=== PATIENT | male | born 1990 | race Caucasian/White ===

== ENCOUNTER 2021-01-19 08:24 | Outpatient (REF) | payer OTHER, SELFPAY ==
[2021-01-19 09:01] LABS: COVID-19 Test Negative (Negative)
== END 2021-01-19 08:25 | disposition home or self-care (01) ==
LOC: HO.LAB 08:24
PROVIDERS: Visit Provider Internal Medicine
DX: Z20.822 Contact with and (suspected) exposure to COVID-19 (principal)
CPT/HCPCS: 36415; 87635; C9803

== ENCOUNTER 2023-04-07 10:15 | Outpatient (AMB) | payer OTHER, SELFPAY ==
--- NOTE | 2023-04-07 10:19 | A.OFFPC_ITS ---
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 Accompanied by: Self / Same As Patient Allergies No Known Allergies Allergy (Verified 04/07/23 10:50) Medication List - Last Reconciled 04/07/23 by Juan Mc PA-C blood pressure monitor (Blood Pressure Kit) As directed dextroamphetamine-amphetamine 30 mg ER (Adderall XR) 30 mg PO DAILY 30 days lisinopril 10 mg PO DAILY omeprazole 40 mg PO QAM Tobacco use date assessed: 04/07/23 Dental Screening Dental Screen Date: 04/07/23 Did you have a dental visit in the last 12 months?: Yes Did you have a dental problem in the last 6 months where you did not have access to dental care?: No Was dental information given to patient?: Patient has dentist HPI PE HPI Details Patient is a 32-year-old male here today for annual physical? Patient has a past medical history significant for ADHD, HTN and obesity. Concern--> reports having a several month history of intermittent left wrist pain. Has gotten x-ray without any acute evidence of fracture dislocations. 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 ADHD:? Has been doing well on current dose of Adderall.? Able to stay focused and on task while at work. 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 .. Hypertension:? Patient's blood pressure acceptable today in office.? He continues on lisinopril 10 mg with good effect.? Has follow-up with nurse navigator and has had blood pressure checks with decent readings. Vaccines: Up-to-date with COVID vaccine, tetanus vaccine [facility] Medical History (Updated 04/07/23 @ 11:07 by Juan Mc PA-C) Elevated blood pressure reading Right wrist tendinitis Surgical History History of eye surgery History of foot surgery History of hand surgery History of removal of cyst History of wisdom tooth extraction Family History Father No problems noted. Mother No problems noted. 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 Roc Garcia, Tracey Mcintosh, Arturo Reyes and colleagues, with an educational eros from [employer]. Review of Systems Const Denies body aches, Denies chills, Denies excessive sweating, Denies fatigue, Denies fever(s) and Denies headache(s) Eyes Denies blurry vision ENT Denies dysphagia, Denies vertigo, Denies dizziness, Denies headache(s), Denies hearing loss and Denies tinnitus Card Denies chest pain, Denies chest pain with activity, Denies syncope, Denies irregular heart rhythm and Denies dyspnea Resp Denies chest congestion, Denies cough, Denies hemoptysis, Denies dyspnea and Denies wheezing GI Denies abdominal pain, Denies melena, Denies hematochezia, Denies coffee ground emesis, Denies dysphagia, Denies diarrhea, Denies nausea and Denies vomiting Denies difficulty urinating, Denies dysuria, Denies urinary frequency, Denies urinary hesitancy and Denies urinary urgency Musc Denies arthralgias, Denies limited range of motion, Denies muscle cramps and Denies muscle weakness Skin/Breast Denies rash and Denies skin ulcer Neuro Denies Abnormal speech present, Denies confusion, Denies vertigo, Denies dizziness, Denies syncope, Denies headache(s), Denies memory loss and Denies seizure-like activity Psych Denies anxiety, Denies confusion, Denies depression, Denies memory loss, Denies panic attacks and Denies paranoia Endo Denies excessive sweating, Denies fatigue, Denies flushing, Denies polydipsia and Denies polyuria Aller/Immun Denies wheezing Physical exam (Primary Care) Vital Signs: Last Vital Signs Pulse 73 04/07/23 10:20 BP 122/78 04/07/23 10:20 Pulse Ox 97 04/07/23 10:20 BMI result Body Mass Index 31.8 BMI Assessment/Plan discussion: High Tobacco/Smoking Status: Tobacco use Status Tobacco use date assessed 04/07/23 04/07/23 10:20 Patient Tobacco Use Status Never used Tobacco 04/07/23 10:20 e-Cigarette/Vaping Use Never Used 04/07/23 10:20 Thrive Assessment: Date of Thrive Assessment Date Thrive assessed 10/11/22 04/07/23 10:20 Const General: cooperative, comfortable, no acute distress, alert and awake; No confusion Orientation/consciousness: oriented to person, oriented to place, patient oriented x3 and No confusion HENMT Other: RIGHT EAR: TYMPANIC MEMBRANE WITHOUT ERYTHEMA THOUGH DOES HAVE AIR-FLUID LEVELS. Head: Yes normocephalic Ears: external ears normal Face and sinus: No sinus tenderness Mouth: Normal oral and palatal mucosa present and tongue normal Teeth and gingiva: dentition normal and gingiva normal Throat: Yes posterior oropharynx normal, Yes tonsils normal and Yes uvula midline Eyes Conjunctivae: conjunctivae normal Sclerae: sclerae normal Pupils: Equal, round and reactive pupils present EOM: EOMs intact bilaterally Direct Ophthalmoscopy: No no photophobia Neck Neck: Yes no lymphadenopathy, No tender and Yes no JVD Thyroid: Thyroid normal Carotids: no bruits Chest Chest palpation & inspection: no tenderness Resp Effort & Inspection: normal respiratory effort, no audible wheezes, not labored and no stridor Auscultation: no crackles, no rales, no rhonchi and no wheezes Cardio Jugular venous distension: no JVD Rate: regular rate, not bradycardic and not tachycardic Rhythm: regular rhythm Bruits: no carotid bruits Peripheral pulses: Peripheral pulses 2+ throughout GI Inspection: Yes normal to inspection, No abdominal wall ecchymosis and No visible herniation Palpation (GI): Soft to palpation, nontender, no guarding, not rigid and No hepatosplenomegaly present Auscultation: normoactive bowel sounds General: Yes no CVA tenderness Back/Spine/Pelvis Back: no CVA tenderness and No back tenderness Cervical Spine: cervical ROM normal Thoracic/Lumbar Spine: thoracic and lumbar spine normal to inspection, straight leg raise negative bilaterally, No thoraco-lumbar ROM limited and No lumbar spinal tenderness Skin Lesions: no lesions Rashes: no rashes Wounds: no wounds Neuro General: oriented to person, oriented to place, patient oriented x3, CN's II-XI intact bilaterally and No confusion Cranial nerves: Yes Equal, round and reactive pupils present and Yes Normal accommodation reflex present Cognition (Neuro): normal cognition Speech: No Abnormal speech present Gait exam (Neuro): Normal gait present Motor exam (neuro): 5/5 motor strength present throughout Extrem Right upper extremity: full ROM; no cyanosis Left upper extremity: full ROM; no cyanosis Right lower extremity: no edema Left lower extremity: no edema Psych Appearance: grossly normal Mental Status: mental status grossly normal Affect: normal affect Attitude: cooperative Thought process: Normal thought process present Assessment and Plan Assessment & Plan (1) Physical exam: Comment: UTD eye exam Due for dental Due for labs ordered by previous PCP Code(s): Z00.00 - Encounter for general adult medical examination without abnormal findings (2) HTN (hypertension): Code(s): I10 - Essential (primary) hypertension Qualifiers: Hypertension type: primary hypertension Qualified Code(s): I10 - Essential (primary) hypertension Plan: Patient's blood pressure acceptable today in office. Will continue his current dose of lisinopril 10 mg with goal blood pressure to be below 140/90 (3) Obese: Code(s): E66.9 - Obesity, unspecified Qualifiers: Body mass index: BMI 34.0-34.9 Obesity classification: adult class 1 (BMI 30 - 34.9) Obesity type: due to excess calories Serious obesity comorbidity presence: without serious comorbidity Qualified Code(s): E66.09 - Other obesity due to excess calories; Z68.34 - Body mass index [BMI] 34.0-34.9, adult Plan: Patient does understand his BMI still remains above 30 will continue working on being more physically active and adapting to better eating habits to reduce his weight (4) ADHD (attention deficit hyperactivity disorder): Code(s): F90.9 - Attention-deficit hyperactivity disorder, unspecified type Qualifiers: Attention deficit-hyperactivity disorder type: combined inattentive- hyperactive Qualified Code(s): F90.2 - Attention-deficit hyperactivity disorder, combined type Plan: Patient continues on Adderall 30 mg daily with good effect on his attention focus on his job tasks. He denies any side effects of decreased appetite or sleep disturbance. (5) Chronic eustachian salpingitis, right ear: Code(s): H68.021 - Chronic Eustachian salpingitis, right ear Plan: Reports he continues to have right ear crackling sound. Has tried to clean his ear though has not been effective. He reports this sensation in his ear has been evident over many years. On physical exam does have air-fluid levels noted on his tympanic membrane. Likely has eustachian tube dysfunction advised on antihistamine therapy and Flonase nasal spray as conservative therapy. Will refer to ENT for evaluation and treatment. Orders: Orders Comprehensive [place]. Panel Fast Today I10 - Essential (primary) hypertension Microalbumin, Random (w Creat) Today I10 - Essential (primary) hypertension Complete Blood Count no Diff Today I10 - Essential (primary) hypertension Referrals Ear/Nose/Throat Referral H68.021 - Chronic Eustachian salpingitis, right ear Coding Level of Care Code Est Pt Prev Care 18-39y([id number]) Diagnoses Physical exam Z00.00 HTN (hypertension) I10 Hypertension type: primary hypertension Obese E66.09; Z68.34 Body mass index: BMI 34.0-34.9 Obesity classification: adult class 1 (BMI 30 - 34.9) Obesity type: due to excess calories Serious obesity comorbidity presence: without serious comorbidity ADHD (attention deficit hyperactivity disorder) F90.2 Attention deficit-hyperactivity disorder type: combined inattentive- hyperactive Chronic eustachian salpingitis, right ear H68.021
[2023-04-07 10:20] VITALS: BP 122/78; PULSE 73; O2SAT 97; BMI 31.8
== END 2023-04-07 11:11 | disposition home or self-care (01) ==
PROVIDERS: PCP Physician Assistant; Visit Provider Physician Assistant
DX: Z00.00 Encounter for general adult medical examination without abnormal findings (principal); I10 Essential (primary) hypertension; Z68.34 Body mass index [BMI] 34.0-34.9, adult; F90.2 Attention-deficit hyperactivity disorder, combined type; E66.09 Other obesity due to excess calories; H68.021 Chronic Eustachian salpingitis, right ear
CPT/HCPCS: 99395

== ENCOUNTER 2023-08-31 09:12 | Outpatient (AMB) | payer OTHER, SELFPAY ==
[2023-08-31 09:18] VITALS: BP 132/96; PULSE 88; O2SAT 98; BMI 32.0
--- NOTE | 2023-08-31 09:18 | MHC.PC.OV ---
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 by: Self / Same As Patient Allergies No Known Allergies Allergy (Verified 08/31/23 09:49) Medication List - Last Reconciled 08/31/23 by Juan Mc PA-C blood pressure monitor (Blood Pressure Kit) As directed dextroamphetamine-amphetamine 30 mg ER (Adderall XR) 30 mg PO DAILY 28 days lisinopril 10 mg PO DAILY omeprazole 40 mg PO QAM Tobacco use date assessed: 04/07/23 Dental Screening Dental Screen Date: 08/31/23 Did you have a dental visit in the last 12 months?: Yes Did you have a dental problem in the last 6 months where you did not have access to dental care?: No Was dental information given to patient?: Patient has dentist HPI ADHD f/u HPI Details Patient is a 32-year-old male here today for follow-up visit. Patient has a past medical history significant for ADHD, HTN and obesity. ADHD:? Has been doing well on current dose of Adderall.? Able to stay focused and on task while at work. 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 .. Hypertension:? Patient's blood pressure slightly elevated today in office, he reports having coffee this morning..? He continues on lisinopril 10 mg with good effect.? Has follow-up with nurse navigator and has had blood pressure checks with decent readings. He has yet to get labs done advised to do so [facility] Medical History Right wrist tendinitis Elevated blood pressure reading Surgical History History of hand surgery History of wisdom tooth extraction History of removal of cyst History of foot surgery History of eye surgery Family History Father No problems noted. Mother No problems noted. 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 Roc Garcia, Tracey Mcintosh, Arturo Reyes and colleagues, with an educational eros from [employer]. Review of Systems Const Denies headache(s) Eyes Denies loss of vision ENT Denies vertigo, Denies dizziness, Denies headache(s) and Denies sore throat Card Denies chest pain, Denies leg edema and Denies lightheadedness Resp Denies cough, Denies hemoptysis and Denies wheezing GI Denies abdominal pain, Denies melena, Denies constipation, Denies diarrhea and Denies vomiting Denies dysuria, Denies urinary frequency and Denies urinary urgency Musc Denies arthralgias, Denies joint swelling, Denies numbness and Denies tingling Neuro Denies Abnormal speech present, Denies behavioral changes, Denies vertigo, Denies dizziness, Denies headache(s), Denies loss of vision, Denies memory loss, Denies numbness and Denies tingling Psych Denies anxiety, Denies behavioral changes, Denies depression, Denies memory loss and Denies panic attacks Rafy/Lymph Denies easy bleeding and Denies easy bruising Aller/Immun Denies wheezing Physical exam (Primary Care) Vital Signs: Last Vital Signs Pulse 88 08/31/23 09:18 BP 132/96 H 08/31/23 09:18 Pulse Ox 98 08/31/23 09:18 Oxygen Delivery Method Room Air 08/31/23 09:18 BMI result Body Mass Index 32.0 Tobacco/Smoking Status: Tobacco use Status Tobacco use date assessed 04/07/23 08/31/23 09:24 Patient Tobacco Use Status Never used Tobacco 08/31/23 09:24 e-Cigarette/Vaping Use Never Used 08/31/23 09:24 Thrive Assessment: Date of Thrive Assessment Date Thrive assessed 10/11/22 08/31/23 09:24 Const General: healthy appearing, no acute distress, alert and awake Nutritional Appearance: well nourished Orientation/consciousness: oriented to person, oriented to place and oriented to time HENMT Ears: TM's normal bilaterally General nose exam: Normal nasal mucous membranes and turbinates present Eyes Conjunctivae: conjunctivae normal Sclerae: sclerae normal Pupils: Equal, round and reactive pupils present Neck Neck: Yes no lymphadenopathy and Yes no JVD Thyroid: Thyroid normal Carotids: no bruits Resp Effort & Inspection: normal respiratory effort and not tachypneic Auscultation: no crackles, no rales, no rhonchi and no wheezes Cardio Rate: regular rate Rhythm: regular rhythm Heart sounds: no murmurs and normal S1 and S2 GI Palpation (GI): Soft to palpation, nontender, no hepatomegaly and no splenomegaly Auscultation: normal bowel sounds Skin General skin exam: no rashes or lesions noted and dry skin Neuro General: oriented to person, oriented to place and oriented to time Cranial nerves: Yes Equal, round and reactive pupils present Speech: No Abnormal speech present Gait exam (Neuro): Normal gait present Motor exam (neuro): no tremor noted Extrem Right upper extremity: full ROM Left upper extremity: full ROM Right lower extremity: full ROM; no edema Left lower extremity: full ROM; no edema Psych Mental Status: mental status grossly normal Speech and movement: Normal speech and movement present Affect: normal affect Attitude: cooperative Thought process: Normal thought process present Assessment and Plan Assessment & Plan (1) HTN (hypertension): Code(s): I10 - Essential (primary) hypertension Plan: Patient's blood pressure slightly elevated today in office. He does not monitor his blood pressure at home as he reports his cuff is inaccurate.. Advised him to purchase a new cough and do home blood pressure monitoring. Will continue his current dose of lisinopril 10 mg with goal blood pressure to be below 140/90 (2) Obese: Code(s): E66.9 - Obesity, unspecified Plan: Patient does understand his BMI still remains above 30 will continue working on being more physically active and adapting to better eating habits to reduce his weight (3) ADHD (attention deficit hyperactivity disorder): Code(s): F90.9 - Attention-deficit hyperactivity disorder, unspecified type Qualifiers: Attention deficit-hyperactivity disorder type: combined inattentive-hyperactive Qualified Code(s): F90.2 - Attention-deficit hyperactivity disorder, combined type Plan: Patient continues on Adderall 30 mg daily with good effect on his attention focus on his job tasks. He denies any side effects of decreased appetite or sleep disturbance. Coding Level of Care Code Est Pt Level 3 (76248) Diagnoses HTN (hypertension) I10 Obese E66.9 Attention deficit hyperactivity disorder (ADHD), combined type F90.2 Attention deficit-hyperactivity disorder type: combined inattentive-hyperactive
== END 2023-08-31 10:00 | disposition home or self-care (01) ==
PROVIDERS: PCP Physician Assistant; Visit Provider Physician Assistant
DX: I10 Essential (primary) hypertension (principal); E66.9 Obesity, unspecified; F90.2 Attention-deficit hyperactivity disorder, combined type; Z68.32 Body mass index [BMI] 32.0-32.9, adult
CPT/HCPCS: 99213

== ENCOUNTER 2023-12-13 08:49 | Outpatient (AMB) | payer OTHER, SELFPAY ==
--- NOTE | 2023-12-13 08:49 | MHC.PC.OV ---
Intake Visit Reasons: 3 month f/u Intake Note: Patient is here to follow up on medication review. 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 Accompanied by: Self / Same As Patient Allergies No Known Allergies Allergy (Verified 12/13/23 09:17) Medication List - Last Reconciled 12/13/23 by Juan Mc PA-C blood pressure monitor (Blood Pressure Kit) As directed dextroamphetamine-amphetamine 30 mg ER (Adderall XR) 30 mg PO DAILY 28 days fluticasone propionate 50 mcg/actuation 2 sprays intranasal DAILY lisinopril 10 mg PO DAILY omeprazole 40 mg PO QAM Tobacco use date assessed: 04/07/23 Dental Screening Dental Screen Date: 12/13/23 Did you have a dental visit in the last 12 months?: No Did you have a dental problem in the last 6 months where you did not have access to dental care?: No Was dental information given to patient?: No HPI 3 month f/u HPI Details Patient is a 33-year-old male being evaluated today via telephone. Recently tested positive COVID. Patient has a past medical history significant for ADHD, HTN and obesity. ADHD:? Has been doing well on current dose of Adderall.? Able to stay focused and on task while at work. 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 .. Hypertension:? ? He continues on lisinopril 10 mg with good effect.? Has follow-up with nurse navigator and has had blood pressure checks with decent readings. He has yet to get labs done advised to do so [facility] Medical History Right wrist tendinitis Elevated blood pressure reading Surgical History History of hand surgery History of wisdom tooth extraction History of removal of cyst History of foot surgery History of eye surgery Family History Father No problems noted. Mother No problems noted. 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 1. Little interest or pleasure in doing things: not at all 2. Feeling down, depressed, or hopeless: not at all 3. Trouble falling or staying asleep, or sleeping too much: not at all 4. Feeling tired or having little energy: not at all 5. Poor appetite or overeating: not at all 6. Feeling bad about yourself - or that you are a failure or have let yourself or your family down: not at all 7. Trouble concentrating on things, such as reading the newspaper or watching television: not at all 8. Moving or speaking so slowly that other people could have noticed. Or the opposite - being so fidgety or restless that you have been moving around a lot more than usual: not at all 9. Thoughts that you would be better off or of hurting yourself in some way: not at all Total score: 0 Depression Screening Interpretation: Negative Depression Screening Done: Yes Source: Developed by Drs. Roc Garcia, Tracey Mcintosh, Arturo Reyes and colleagues, with an educational eros from [employer]. Thrive Questionnaire Date Thrive assessed: 12/13/23 I am a: Patient What is your living situation today?: I have a steady place to live Within the past 12 months, did the food you bought not last and you didn't have the money to get more?: Never true Within the past 12 months, did you worry whether your food would run out before you got money to buy more?: Never true Do you have trouble paying for medicines?: No Do you have trouble getting transportation to medical appointments?: No Do you have trouble paying your heating and electricity bill?: No Do you have trouble taking care of your child, family member or friend?: No Do you have trouble with day-to-day activities such as bathing, preparing meals, shopping, managing finances, etc.?: No Are you currently unemployed and looking for a job?: No Are you interested in more education?: No Currently or been in a relationship where the following occur: no concerns reported THRIVE Score: 0 AUDIT C Alcohol Use Questionnaire (AUDIT-C) 1. How often do you have a drink containing alcohol?: Never Total Score: 0 APRYL-7 AMB Questionnaire APRYL-7 Date APRYL - 7 assessed: 12/13/23 Feeling nervous, anxious, or on edge: 0 = Not at all Not being able to stop or control worryin = Not at all Worrying too much about different things: 0 = Not at all Trouble relaxin = Not at all Being so restless that it is hard to sit still: 0 = Not at all Becoming easily annoyed or irritable: 0 = Not at all Feeling afraid as if something awful might happen: 0 = Not at all Total APRYL-7 score (0-4 normal; 5-9 mild; 10-14 moderate; 15-21 severe): 0 Source: Developed by Drs. Roc Garcia, Tracey Mcintosh, Arturo Reyes and colleagues, with an educational eros from [employer]. APRYL-7 Assessment Billing APRYL-7 Assessment Tool: APRYL-7 Assessment 21803 Review of Systems Const Denies headache(s) Eyes Denies loss of vision ENT Denies vertigo, Denies dizziness, Denies headache(s) and Denies sore throat Card Denies chest pain, Denies leg edema and Denies lightheadedness Resp Denies cough, Denies hemoptysis and Denies wheezing GI Denies abdominal pain, Denies melena, Denies constipation, Denies diarrhea and Denies vomiting Denies dysuria, Denies urinary frequency and Denies urinary urgency Musc Denies arthralgias, Denies joint swelling, Denies numbness and Denies tingling Neuro Denies behavioral changes, Denies vertigo, Denies dizziness, Denies headache(s), Denies loss of vision, Denies memory loss, Denies numbness and Denies tingling Psych Denies anxiety, Denies behavioral changes, Denies depression, Denies memory loss and Denies panic attacks Rafy/Lymph Denies easy bleeding and Denies easy bruising Aller/Immun Denies wheezing Physical exam (Primary Care) Tobacco/Smoking Status: Tobacco use Status Tobacco use date assessed 04/07/23 12/13/23 08:53 Patient Tobacco Use Status Never used Tobacco 12/13/23 08:53 e-Cigarette/Vaping Use Never Used 12/13/23 08:53 PHQ-9: PHQ-9 Score PHQ-9: Total score 0 12/13/23 08:53 Depression Screening Interpretation: Negative Thrive Assessment: Date of Thrive Assessment Date Thrive assessed 12/13/23 12/13/23 08:53 Currently or been in a relationship where the following occur: no concerns reported Telehealth Telehealth Location of provider rendering services: practice address Location of patient: address on file Patient Identification confirmed using: Name, : Yes Telehealth method: voice only Patient verbally consented to treatment: Yes Patient verbally consented to billing insurance company: Yes Patient informed of any privacy concerns related to visit: Yes Minutes spent on Phone/Video with Pt.: 11 Assessment and Plan Assessment & Plan (1) HTN (hypertension): Code(s): I10 - Essential (primary) hypertension Qualifiers: Hypertension type: primary hypertension Qualified Code(s): I10 - Essential (primary) hypertension Plan: Will continue his current dose of lisinopril 10 mg with goal blood pressure to be below 140/90 Advised to get fasting blood work done before upcoming annual physical to evaluate renal function (2) ADHD (attention deficit hyperactivity disorder): Code(s): F90.9 - Attention-deficit hyperactivity disorder, unspecified type Qualifiers: Attention deficit-hyperactivity disorder type: combined inattentive-hyperactive Qualified Code(s): F90.2 - Attention-deficit hyperactivity disorder, combined type Plan: Patient continues on Adderall 30 mg daily with good effect on his attention focus on his job tasks. He denies any side effects of decreased appetite or sleep disturbance. Coding Level of Care Code Tele Est Pt Level 3 (45629) Diagnoses Primary hypertension I10 Hypertension type: primary hypertension Attention deficit hyperactivity disorder (ADHD), combined type F90.2 Attention deficit-hyperactivity disorder type: combined inattentive-hyperactive Additional Codes APRYL-7 Assessment Billing - APRYL-7 Assessment Tool: PARYL-7 Assessment 16429 ([id number])
== END 2023-12-13 10:14 | disposition home or self-care (01) ==
LOC: HO.HMGH 08:49
PROVIDERS: PCP Physician Assistant; Visit Provider Physician Assistant
DX: I10 Essential (primary) hypertension (principal); F90.2 Attention-deficit hyperactivity disorder, combined type
CPT/HCPCS: 99213

== ENCOUNTER 2024-04-12 11:33 | Outpatient (AMB) | payer OTHER, SELFPAY ==
--- NOTE | 2024-04-12 11:29 | A.OFFPC_ITS ---
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 Accompanied by: Self / Same As Patient Allergies No Known Allergies Allergy (Verified 04/12/24 11:51) Medication List - Last Reconciled 04/12/24 by Juan Mc PA-C blood pressure monitor (Blood Pressure Kit) As directed dextroamphetamine-amphetamine 30 mg ER (Adderall XR) 30 mg PO DAILY 28 days fluticasone propionate 50 mcg/actuation 2 sprays intranasal DAILY lisinopril 10 mg PO DAILY omeprazole 40 mg PO QAM Tobacco use date assessed: 04/12/24 Dental Screening Dental Screen Date: 04/12/24 Did you have a dental visit in the last 12 months?: No Did you have a dental problem in the last 6 months where you did not have access to dental care?: No Was dental information given to patient?: Yes HPI pe HPI Details Patient is a 33-year-old male here today for routine annual physical. Patient has a past medical history significant for ADHD, HTN and obesity. Eustachian tube dysfunction: Has followed by ENT. His hearing exam is have been abnormal. He often hears a fluttering sound in his right ear. Will be getting repeat hearing exam and if abnormal will consider MRI of the external canals ADHD:? Has been doing well on current dose of Adderall.? Able to stay focused and on task while at work. 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 .. Hypertension:? ? He continues on lisinopril 10 mg with good effect.? Has follow- up with nurse navigator and has had blood pressure checks with decent readings. He has yet to get labs done advised to do so CHARLI Vaccines: Up-to-date with COVID vaccine, tetanus vaccine and flu vaccine [facility] Medical History Right wrist tendinitis Elevated blood pressure reading Surgical History History of hand surgery History of wisdom tooth extraction History of removal of cyst History of foot surgery History of eye surgery Family History Father No problems noted. Mother No problems noted. 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 Roc Garcia, Tracey Mcintosh, Arturo Reyes and colleagues, with an educational eros from [employer]. Review of Systems Const Denies body aches, Denies chills, Denies excessive sweating, Denies fatigue, Denies fever(s) and Denies headache(s) Eyes Denies blurry vision ENT Denies dysphagia, Denies vertigo, Denies dizziness, Denies headache(s), Denies hearing loss and Denies tinnitus Card Denies chest pain, Denies chest pain with activity, Denies syncope, Denies ir regular heart rhythm and Denies dyspnea Resp Denies chest congestion, Denies cough, Denies hemoptysis, Denies dyspnea and Denies wheezing GI Denies abdominal pain, Denies melena, Denies hematochezia, Denies coffee ground emesis, Denies dysphagia, Denies diarrhea, Denies nausea and Denies vomiting Denies difficulty urinating, Denies dysuria, Denies urinary frequency, Denies urinary hesitancy and Denies urinary urgency Musc Denies arthralgias, Denies limited range of motion, Denies muscle cramps and Denies muscle weakness Skin/Breast Denies rash and Denies skin ulcer Neuro Denies Abnormal speech present, Denies confusion, Denies vertigo, Denies dizziness, Denies syncope, Denies headache(s), Denies memory loss and Denies seizure-like activity Psych Denies anxiety, Denies confusion, Denies depression, Denies memory loss, Denies panic attacks and Denies paranoia Endo Denies excessive sweating, Denies fatigue, Denies flushing, Denies polydipsia and Denies polyuria Aller/Immun Denies wheezing Physical exam (Primary Care) Vital Signs: Last Vital Signs Pulse 90 04/12/24 11:34 BP 130/90 H 04/12/24 11:34 Pulse Ox 98 04/12/24 11:34 Oxygen Delivery Method Room Air 04/12/24 11:34 BMI result Body Mass Index 31.5 Tobacco/Smoking Status: Tobacco use Status Tobacco use date assessed 04/12/24 04/12/24 11:35 Patient Tobacco Use Status Never used Tobacco 04/12/24 11:30 e-Cigarette/Vaping Use Never Used 04/12/24 11:30 Thrive Assessment: Date of Thrive Assessment Date Thrive assessed 12/13/23 04/12/24 11:30 Const General: cooperative, comfortable, no acute distress, alert and awake; No confusion Orientation/consciousness: oriented to person, oriented to place, patient oriented x3 and No confusion HENMT Head: Yes normocephalic Ears: external ears normal and TM's normal bilaterally Face and sinus: No sinus tenderness Mouth: Normal oral and palatal mucosa present and tongue normal Teeth and gingiva: dentition normal and gingiva normal Throat: Yes posterior oropharynx normal, Yes tonsils normal and Yes uvula midline Eyes Conjunctivae: conjunctivae normal Sclerae: sclerae normal Pupils: Equal, round and reactive pupils present EOM: EOMs intact bilaterally Direct Ophthalmoscopy: No no photophobia Neck Neck: Yes no lymphadenopathy, No tender and Yes no JVD Thyroid: Thyroid normal Carotids: no bruits Chest Chest palpation & inspection: no tenderness Resp Effort & Inspection: normal respiratory effort, no audible wheezes, not labored and no stridor Auscultation: no crackles, no rales, no rhonchi and no wheezes Cardio Jugular venous distension: no JVD Rate: regular rate, not bradycardic and not tachycardic Rhythm: regular rhythm Bruits: no carotid bruits Peripheral pulses: Peripheral pulses 2+ throughout GI Inspection: Yes normal to inspection, No abdominal wall ecchymosis and No visible herniation Palpation (GI): Soft to palpation, nontender, no guarding, not rigid and No hepatosplenomegaly present Auscultation: normoactive bowel sounds General: Yes no CVA tenderness Back/Spine/Pelvis Back: no CVA tenderness and No back tenderness Cervical Spine: cervical ROM normal Thoracic/Lumbar Spine: thoracic and lumbar spine normal to inspection, straight leg raise negative bilaterally, No thoraco-lumbar ROM limited and No lumbar spinal tenderness Skin Lesions: no lesions Rashes: no rashes Wounds: no wounds Neuro General: oriented to person, oriented to place, patient oriented x3, CN's II-XI intact bilaterally and No confusion Cranial nerves: Yes Equal, round and reactive pupils present and Yes Normal accommodation reflex present Cognition (Neuro): normal cognition Speech: No Abnormal speech present Gait exam (Neuro): Normal gait present Motor exam (neuro): 5/5 motor strength present throughout Extrem Right upper extremity: full ROM; no cyanosis Left upper extremity: full ROM; no cyanosis Right lower extremity: no edema Left lower extremity: no edema Psych Appearance: grossly normal Mental Status: mental status grossly normal Affect: normal affect Attitude: cooperative Thought process: Normal thought process present Assessment and Plan Assessment & Plan (1) Physical exam: Comment: UTD eye exam Due for dental Due for labs ordered by previous PCP Code(s): Z00.00 - Encounter for general adult medical examination without abnormal findings (2) HTN (hypertension): Code(s): I10 - Essential (primary) hypertension Qualifiers: Hypertension type: primary hypertension Qualified Code(s): I10 - Essential (primary) hypertension Plan: Will continue his current dose of lisinopril 10 mg with goal blood pressure to be below 140/90 (3) ADHD (attention deficit hyperactivity disorder): Code(s): F90.9 - Attention-deficit hyperactivity disorder, unspecified type Qualifiers: Attention deficit-hyperactivity disorder type: combined inattentive- hyperactive Qualified Code(s): F90.2 - Attention-deficit hyperactivity disorder, combined type Plan: Patient continues on Adderall 30 mg daily with good effect on his attention focus on his job tasks. He denies any side effects of decreased appetite or sleep disturbance. (4) Encounter for vasectomy assessment: Code(s): Z30.09 - Encounter for other general counseling and advice on contraception Plan: Interested in getting a vasectomy. Urology referral placed (5) Chronic eustachian salpingitis, right ear: Code(s): H68.021 - Chronic Eustachian salpingitis, right ear Plan: As per HPI patient is followed by a ENT specialist in is undergoing hearing evaluations. Orders: Referrals Urology Referral Z30.09 - Encounter for other general counseling and advice on contraception Medications: Refilled omeprazole 40 mg PO QAM 90 caps 3RF dextroamphetamine-amphetamine 30 mg ER (Adderall XR) 30 mg PO DAILY 28 caps 0RF 28 days F90.2 - Attention-deficit hyperactivity disorder, combined type lisinopril 10 mg PO DAILY 90 tabs 3RF I10 - Essential (primary) hypertension Patient Instructions: Goal: Blood pressure to remain below 140/90 Barrier: Adherence to physical activity and healthy eating habits Coding Level of Care Code Est Pt Prev Care 18-39y(12910) Diagnoses Physical exam Z00.00 Primary hypertension I10 Hypertension type: primary hypertension Attention deficit hyperactivity disorder (ADHD), combined type F90.2 Attention deficit-hyperactivity disorder type: combined inattentive- hyperactive Encounter for vasectomy assessment Z30.09 Chronic eustachian salpingitis, right ear H68.021
[2024-04-12 11:34] VITALS: BP 130/90; PULSE 90; O2SAT 98; BMI 31.5
== END 2024-04-12 12:09 | disposition home or self-care (01) ==
LOC: HO.HMGH 11:33
PROVIDERS: PCP Physician Assistant; Visit Provider Physician Assistant
DX: Z00.00 Encounter for general adult medical examination without abnormal findings (principal); I10 Essential (primary) hypertension; F90.2 Attention-deficit hyperactivity disorder, combined type; Z30.09 Encounter for other general counseling and advice on contraception; H68.021 Chronic Eustachian salpingitis, right ear
CPT/HCPCS: 99395

== ENCOUNTER 2024-06-01 14:38 | Outpatient (AMB) | payer OTHER, SELFPAY ==
--- NOTE | 2024-06-01 14:55 | A.OFFVIS_ITS ---
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 Mc. He presents to the office today for - vasectomy evaluation Vasectomy evaluation The patient presents for vasectomy consultation.? He is currently He has fathered -?3 children, with 1 single partner The youngest child is - 4 years old? 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 Patient education has been provided via AUA video, via printed information, risks of failure, recovery time, bruising and potential pain syndrome have been stressed Discussion today focused on the presence of vasectomy and the risks, benefits and alternatives that are available. Vasectomy as intended as a permanent form of control. Printed information and literature was provided to the patient. Overall there is a one in 2500 failure rate. This can occur at any time after vasectomy. Risks were discussed highlighting hematoma, spermatocele, epididymal congestion, development of sperm antibodies, and development of chronic pain estimated between 1-5%. The procedure was reviewed in detail. Anatomical diagrams of the male genitalia were used to explain the location of the vas deferens. The vas deferens will be transected, the proximal end will be cauterized, a metal clip would be applied to separate the 2 vas deferens ends. It was explained the procedure will be done in the office and takes approximately 10-15 minutes. Less common problems that arise with vasectomy include hematoma, bleeding, allergic reaction to anesthetic, epididymal infection, epididymal congestion, scrotal discomfort, spermatic leak, spermatic granuloma and the possibility of antisperm antibodies. He understands these risks and wishes to proceed. Consent was signed at the office today. He also understands that it takes 12 weeks for sperm to fully clear the system. He will need to provide a semen sample at 12 weeks and if this is not clear a 2nd sample at 16 weeks. Medical clearance to stop using protection will only be provided if he satisfies published criteria for sperm clearance. [facility], [facility] Medical History Right wrist tendinitis Elevated blood pressure reading Surgical History History of hand surgery History of wisdom tooth extraction History of removal of cyst History of foot surgery History of eye surgery Family History Father No problems noted. Mother No problems noted. 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 Current occupational exposures/hazards: No Cognitive needs: No Hearing needs: No Vision needs: Yes Review of Systems Const All systems reviewed & are unremarkable except as noted in HPI and below Physical Exam Const General: cooperative, healthy appearing, comfortable, no acute distress, well developed, alert and awake Orientation/consciousness: patient oriented x3 Limitations: no limitations HEENT Head: Yes normal to inspection, Yes normocephalic and Yes atraumatic Ears: hearing grossly normal bilaterally Eyes General: appearance normal, both eyes and all related structures Neck Neck: Yes normal visual inspection and Yes trachea midline Chest Chest palpation & inspection: normal inspection of the chest Resp Effort & Inspection: normal respiratory effort and able to speak in complete sentences Cardio Rate: regular rate GI Inspection: Yes normal to inspection General: Yes no CVA tenderness Male General Exam: Yes normal external exam Penis: normal penis Scrotum: scrotum normal Testes: Testes normal Back/Spine/Pelvis Back: no CVA tenderness Skin General skin exam: no rashes or lesions noted Neuro General: patient oriented x3 Extrem General: Yes normal to inspection Psych Appearance: grossly normal and well kempt Mental Status: mental status grossly normal Speech and movement: Normal speech and movement present and Clear speech present Affect: normal affect Attitude: cooperative Thought process: Normal thought process present Thought content: Normal thought content present Insight: Fair insight present (Psych) Judgement: Fair judgement present (Psych) Assessment & Plan Assessment & Plan (1) Encounter for vasectomy assessment: Code(s): Z30.09 - Encounter for other general counseling and advice on contraception Category: Medical (2) Anxiety about health: Code(s): R45.89 - Other symptoms and signs involving emotional state Category: Medical Plan In office vasectomy was discussed at length; risks and benefits; as noted above. Prescription provided for p.r.n. medications in discussed importance of bringing them to office day of procedure. Discussed in office semen analysis verses fellows kit; information provided. Will schedule for in office vasectomy as discussed Follow-up per doctor's orders; or sooner with any issues, concerns, and or questions. Medications: New diazepam Take medication after arrival at office 2 mg PO BID 1 day PRN 2 tabs 0RF anxiety R45.89 - Other symptoms and signs involving emotional state tramadol Take medication after arrival at office 50 mg PO Q8H PRN 7 tabs 0RF pain N43.3 - Hydrocele, unspecified Patient Instructions: The patient had an opportunity to ask questions regarding the treatment plan. All questions were answered. Physical exam, labs, and imaging were discussed and reviewed in detail. As well as risks, benefits, and discussion of treatment choices. No major barriers to understanding were identified. The patient expressed understanding and agreement with the above treatment plan. The patient was made aware they should contact our office by phone for worsening of their current condition, the appearance of new symptoms, or with any questions or concerns. Compliance is encouraged with any medications and follow up testing that is ordered. It is a privilege to be allowed the opportunity to participate in? your urological care.? Again, if you have any questions or concerns If you have any questions or concerns please do not hesitate to contact me. The office is [phone]. This note is constructed using voice recognition software. While every effort has been made to ensure accuracy assembly line leader errors may have been included. Yours sincerely, EDUIN Goldsmith Coding Level of Care Code New Pt Level 4 (79308) Diagnoses Encounter for vasectomy assessment Z30.09 Anxiety about health R45.89
== END 2024-06-01 15:34 | disposition home or self-care (01) ==
PROVIDERS: PCP Physician Assistant; Visit Provider Nurse Practitioner Family
DX: Z30.09 Encounter for other general counseling and advice on contraception (principal); R45.89 Other symptoms and signs involving emotional state
CPT/HCPCS: 99204

== ENCOUNTER → 2024-06-01 14:38 | Outpatient (BNVA) | payer OTHER, SELFPAY | PROVIDERS: PCP Physician Assistant; Visit Provider Nurse Practitioner Family ==

== ENCOUNTER 2024-07-18 09:24 | Outpatient (AMB) | payer OTHER, SELFPAY ==
--- NOTE | 2024-07-18 09:33 | A.OFFPC_ITS ---
Vital Signs 07/18/24 09:34 Height 5 ft 6 in Weight 196 lb BMI 31.6 BP 140/90 H Blood Pressure Location Lt brachial Position Sitting Pulse 86 Pulse Source Pulse Oximeter Pulse Oximetry (%) 96 Oxygen Delivery Method Room Air Intake Visit Reasons: 3 mo follow up Intake Note: Patient is here to follow up on HTN, ADHD. 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: No Community Program Assistant: Not Required per policy Accompanied by: Self / Same As Patient Allergies No Known Allergies Allergy (Verified 07/18/24 09:47) Medication List - Last Reconciled 07/18/24 by Juan Mc PA-C blood pressure monitor (Blood Pressure Kit) As directed dextroamphetamine-amphetamine 30 mg ER (Adderall XR) 30 mg PO DAILY 28 days diazepam 2 mg PO BID PRN 1 day fluticasone propionate 50 mcg/actuation 2 sprays intranasal DAILY lisinopril 10 mg PO DAILY omeprazole 40 mg PO QAM tramadol 50 mg PO Q8H PRN Tobacco use date assessed: 07/18/24 Dental Screening Dental Screen Date: 04/12/24 HPI 3 mo follow up HPI Details Patient is a 33-year-old male here today for a follow up visit. Patient has a past medical history significant for ADHD, HTN and obesity. UNFORTUNATELY UNABLE TO GET FASTING LABS DONE BEFORE TODAY'S VISIT. Eustachian tube dysfunction: Has followed by ENT. His hearing exam is have been abnormal. He often hears a fluttering sound in his right ear. He has got MRI of his external canals without any significant findings. Unfortunately still has some abnormalities in his hearing in hear some crackles in his ear. ADHD:? Has been doing well on current dose of Adderall.? Able to stay focused and on task while at work. 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 .. Hypertension:? ? He continues on lisinopril 10 mg with good effect.? Blood pressure today slightly elevated. He reports having a cup of coffee before he comes into the office. He reports generally his blood pressures are well controlled at home [facility] Medical History Right wrist tendinitis Elevated blood pressure reading Surgical History History of hand surgery History of wisdom tooth extraction History of removal of cyst History of foot surgery History of eye surgery Family History Father No problems noted. Mother No problems noted. 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 Roc Garcia, Tracey Mcintosh, Arturo Reyes and colleagues, with an educational eros from [employer]. Review of Systems Const Denies headache(s) Eyes Denies loss of vision ENT Denies vertigo, Denies dizziness, Denies headache(s) and Denies sore throat Card Denies chest pain, Denies leg edema and Denies lightheadedness Resp Denies cough, Denies hemoptysis and Denies wheezing GI Denies abdominal pain, Denies melena, Denies constipation, Denies diarrhea and Denies vomiting Denies dysuria, Denies urinary frequency and Denies urinary urgency Musc Denies arthralgias, Denies joint swelling, Denies numbness and Denies tingling Neuro Denies Abnormal speech present, Denies behavioral changes, Denies vertigo, Denies dizziness, Denies headache(s), Denies loss of vision, Denies memory loss, Denies numbness and Denies tingling Psych Denies anxiety, Denies behavioral changes, Denies depression, Denies memory loss and Denies panic attacks Rafy/Lymph Denies easy bleeding and Denies easy bruising Aller/Immun Denies wheezing Physical exam (Primary Care) Vital Signs: Last Vital Signs Pulse 86 07/18/24 09:34 BP 140/90 H 07/18/24 09:34 Pulse Ox 96 07/18/24 09:34 Oxygen Delivery Method Room Air 07/18/24 09:34 BMI result Body Mass Index 31.6 Tobacco/Smoking Status: Tobacco use Status Tobacco use date assessed 07/18/24 07/18/24 09:37 Patient Tobacco Use Status Never used Tobacco 07/18/24 09:37 e-Cigarette/Vaping Use Never Used 07/18/24 09:37 Thrive Assessment: Date of Thrive Assessment Date Thrive assessed 12/13/23 07/18/24 09:37 Const General: healthy appearing, no acute distress, alert and awake Nutritional Appearance: well nourished Orientation/consciousness: oriented to person, oriented to place and oriented to time HENMT Ears: TM's normal bilaterally General nose exam: Normal nasal mucous membranes and turbinates present Eyes Conjunctivae: conjunctivae normal Sclerae: sclerae normal Pupils: Equal, round and reactive pupils present Neck Neck: Yes no lymphadenopathy and Yes no JVD Thyroid: Thyroid normal Carotids: no bruits Resp Effort & Inspection: normal respiratory effort and not tachypneic Auscultation: no crackles, no rales, no rhonchi and no wheezes Cardio Rate: regular rate Rhythm: regular rhythm Heart sounds: no murmurs and normal S1 and S2 GI Palpation (GI): Soft to palpation, nontender, no hepatomegaly and no splenomegaly Auscultation: normal bowel sounds Skin General skin exam: no rashes or lesions noted and dry skin Neuro General: oriented to person, oriented to place and oriented to time Cranial nerves: Yes Equal, round and reactive pupils present Speech: No Abnormal speech present Gait exam (Neuro): Normal gait present Motor exam (neuro): no tremor noted Extrem Right upper extremity: full ROM Left upper extremity: full ROM Right lower extremity: full ROM; no edema Left lower extremity: full ROM; no edema Psych Mental Status: mental status grossly normal Speech and movement: Normal speech and movement present Affect: normal affect Attitude: cooperative Thought process: Normal thought process present Office Procedures Flu Questionnaire Does the patient have a severe egg allergy?: No Does the patient have severe life threatening allergies?: No Does the patient have a fever or illness today?: No Has the patient ever had Guillain-Weston Syndrome?: No Has the patient ever had any past reaction to a flu shot?: No Immunizations Fluarix Triv [id number] (PF) 45 mcg (15 mcg x 3)/0.5 mL IM syringe Performing Provider: Juan Mc PA-C [facility] [place] [facility] Administered by: Sugey Martinez LPN on 07/18/24 09:46 Dose Route Admin Location Dispensed Lot Number Expiration Date [facility] Radiology Transporter 0.5 mL IM Left Deltoid 0.5 mL [id number] 03/25/25 [id number] VIS Given Date VIS Provided VIS Publication Date 07/18/24 Single Vaccine 21 Eligibility Eligibility Date Funding Source Not [facility] Eligible 07/18/24 Private Coding Level of Care Code Est Pt Level 3 (96110) Diagnoses Attention deficit hyperactivity disorder (ADHD), combined type F90.2 Attention deficit-hyperactivity disorder type: combined inattentive- hyperactive Primary hypertension I10 Hypertension type: primary hypertension Assessment & Plan Assessment & Plan (1) ADHD (attention deficit hyperactivity disorder): Code(s): F90.9 - Attention-deficit hyperactivity disorder, unspecified type Category: Medical Qualifiers: Attention deficit-hyperactivity disorder type: combined inattentive- hyperactive Qualified Code(s): F90.2 - Attention-deficit hyperactivity disorder, combined type Plan: As per HPI patient doing well on his current dose of stimulant ADHD medication. 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 (2) HTN (hypertension): Code(s): I10 - Essential (primary) hypertension Category: Medical Qualifiers: Hypertension type: primary hypertension Qualified Code(s): I10 - Essential (primary) hypertension Plan: Patient's blood pressure slightly elevated today in office. He reports having a cup of coffee before today's visit. He does monitor his blood pressure from time to time reports normal readings 120s to 130 systolic. Orders: Orders Influenza [id number] Immunization Today Z23 - Encounter for immunization Patient Instructions: Goal: Blood pressure to remain below 140/90 Barrier: Adherence to physical activity and healthy eating habits
[2024-07-18 09:34] VITALS: BP 140/90; PULSE 86; O2SAT 96; BMI 31.6
== END 2024-07-18 09:57 | disposition home or self-care (01) ==
PROVIDERS: PCP Physician Assistant; Visit Provider Physician Assistant
DX: F90.2 Attention-deficit hyperactivity disorder, combined type (principal); I10 Essential (primary) hypertension; Z23 Encounter for immunization

== ENCOUNTER → 2024-07-18 09:24 | Outpatient (BNVA) | payer OTHER, SELFPAY | PROVIDERS: PCP Physician Assistant; Visit Provider Physician Assistant | DX: F90.2 Attention-deficit hyperactivity disorder, combined type (principal); I10 Essential (primary) hypertension; Z23 Encounter for immunization | CPT/HCPCS: 90471; 90656 ==

== ENCOUNTER 2024-07-31 14:22 | Outpatient (AMB) | payer OTHER, SELFPAY ==
--- NOTE | 2024-07-31 15:08 | MHC.OFFVIS ---
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 Mc. He presents to the office today for - vasectomy evaluation Vasectomy evaluation The patient presents for vasectomy consultation.? He is currently He has fathered -?3 children, with 1 single partner The youngest child is - 4 years old? 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 Mother No problems noted. 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 Current occupational exposures/hazards: No Cognitive needs: No Hearing needs: No Vision needs: Yes Review of Systems Const Denies chills and Denies fever(s) Card Reports no additional complaints and Denies syncope Resp Denies cough GI Denies abdominal pain and Denies heartburn Reports as per HPI and Denies change in libido Neuro Denies syncope Psych Denies change in libido Endo Denies change in libido Physical Exam Const General: cooperative, healthy appearing, comfortable and no acute distress Orientation/consciousness: patient oriented x3 HEENT Face and sinus: Yes normal facial exam Mouth: moist mucous membranes Neck Neck: Yes normal visual inspection, Yes full ROM and Yes trachea midline Chest Chest palpation & inspection: normal inspection of the chest Resp Effort & Inspection: normal respiratory effort, able to speak in complete sentences and no respiratory distress GI Inspection: Yes normal to inspection Back/Spine/Pelvis Cervical Spine: normal cervical lordosis Thoracic/Lumbar Spine: thoracic and lumbar spine normal to inspection Skin General skin exam: no rashes or lesions noted Neuro General: patient oriented x3, gait normal, tone normal and moves all extremities Extrem General: Yes normal to inspection and Yes capillary refill normal Office Procedures Vasectomy Details: Preoperative diagnosis: Anxiety regarding Postoperative diagnosis: Anxiety regarding unplanned Procedure: Bilateral vasectomy Informed consent had been completed. Preoperative and postoperative instructions were provided to the patient. The patient has transportation to home identified at the completion of the procedure. Anti-anxiolytic prescription medication had been taken after consent verification and all questions answered. Tylenol with Codeine pain medication was also provided. The penis was elevated using a rubber band that was attached to the patient's shirt. Both vasa were palpated through the skin using a 3 finger technique and the penoscrotal junction was prepped with Betadine. After Betadine application the left vas was elevated using a 3 finger grasping technique. 1% lidocaine was used to create a subdermal bubble. Further anesthetic was then advanced using the 25-gauge needle along the vasa in a proximal fashion. Approximately 2 minutes were allowed to for local anesthetic uptake. Using the sharp spreading instrument the scrotal skin was spread longitudinally in line with the vasa until the subdermal layer had been divided. The vasa was then elevated from the scrotum using a ring clamp. Care was taken to elevate the superior portion of the vasa by rotating the ring clamp in a caudad direction. The battery powered cautery was used to divide the vasal sheath in a longitudinal direction on the exposed vasa and to strip the vasal sheath from the vasa. A 2nd narrower ring clamp was placed on the exposed vas and used to lift the vas from the vasal sheath. so it grasped the elevated vas. The cautery was used to divide vasal attachments and allow full exposure of a small loop of vasa. The sharp spreading instrument was then used to create a tunnel under the vasa and spread to allow the blood vessels of the vasa to retract from the vasa. A mosquito clamp was placed on the proximal portion of the vas. The battery-powered cautery was used to make a partial division in the proximal vas and then inserted in order to cauterize the proximal end of the vas. This was then cut and allowed to retract into the vasal sheath. The mosquito was then used to twist the vasa 180 degrees creating a fascial interposition. Using a 4-0 chromic suture the fascial interposition was sutured closed. The distal portion of the vas was then cut in order to obtain a segment of vasa. The vasa were allowed to retract back into the scrotum. A small snap was then used to approximate the skin edges and allow hemostasis without placement of a suture. A similar procedure was repeated on the right side. He tolerated the procedure well. Triple antibiotic was applied. A gauze was applied. An ice pack was applied to assist with minimizing swelling. Postoperative instructions were confirmed. He understands the need to continue to use control methods. A semen sample should be brought for inspection under the microscope in 10-12 weeks. CPT 84825 Vasectomy performed by: James Alanis Informed consent given: Yes Informed consent signed: Yes Time out checklist: patient, procedure, site marked/identified, positioning of patient, supplies available, allergies confirmed and team agrees on procedure Preoperative sedation: No Anesthetic used: other Specimens: vas segments not sent to pathology 16448 - Vasectomy Assessment & Plan Assessment & Plan (1) Anxiety about health: Code(s): R45.89 - Other symptoms and signs involving emotional state Category: Medical Plan Twelve week follow-up Patient Instructions: Imaging studies, laboratory and physical exam results were discussed and reviewed in detail. No major barriers to patient understanding were identified. An opportunity to ask questions regarding the treatment plan was provided. All questions were answered. The patient expressed understanding and agreement with the above treatment plan. The patient is aware they should contact our office by phone for worsening of their current condition or the appearance of new urologic symptoms. Compliance is encouraged with any medications and followup testing that is ordered. It is a privilege to participate in the urologic care of your patient. If you have any questions or concerns regarding treatment for the above conditions, or other urologic issues, please do not hesitate to contact me. The office telephone contact is [phone]. This note is constructed using voice recognition software. While every effort has been made to ensure accuracy mutual funds agent errors may have been included. Yours sincerely, Dr James Alanis MD, [facility] - Urology Providers of Expert, Compassionate Care for the Genitourinary System Coding Level of Care Code Procedure Only Diagnoses Anxiety about health R45.89 CPT Codes Office Procedure - CPT: 42790 - Vasectomy ([id number])
== END 2024-07-31 15:50 | disposition home or self-care (01) ==
LOC: HO.HUSH 14:22
PROVIDERS: PCP Physician Assistant; Visit Provider Urology
DX: Z30.2 Encounter for sterilization (principal); R45.89 Other symptoms and signs involving emotional state
CPT/HCPCS: 55250

== ENCOUNTER → 2024-07-31 14:22 | Outpatient (BNVA) | payer OTHER, SELFPAY | PROVIDERS: PCP Physician Assistant; Visit Provider Urology | DX: Z30.2 Encounter for sterilization (principal); F41.8 Other specified anxiety disorders | CPT/HCPCS: 55250; J2003 ==

== ENCOUNTER 2024-10-18 08:44 | Outpatient (AMB) | payer OTHER, SELFPAY ==
--- NOTE | 2024-10-18 08:51 | A.OFFPC_ITS ---
Vital Signs 10/18/24 08:55 Height 5 ft 6 in Weight 186 lb 4 oz BMI 30.1 BP 130/70 Blood Pressure Location Lt brachial Position Sitting Pulse 94 Pulse Source Pulse Oximeter Temp 97.1 F Temp Source Skin Pulse Oximetry (%) 99 Oxygen Delivery Method Room Air Intake Visit Reasons: f/u ADHD Intake Note: Patient is here to follow up on ADHD. Child Nutrition Manager Required: No Clinical Document Improvement Educator: Not Required per policy Accompanied by: Self / Same As Patient Allergies No Known Allergies Allergy (Verified 10/18/24 09:00) Medication List - Last Reconciled 10/18/24 by Juan Mc PA-C blood pressure monitor (Blood Pressure Kit) As directed dextroamphetamine-amphetamine 30 mg ER (Adderall XR) 30 mg PO DAILY 28 days diazepam 2 mg PO BID PRN 1 day fluticasone propionate 50 mcg/actuation 2 sprays intranasal DAILY lisinopril 10 mg PO DAILY omeprazole 40 mg PO QAM Tobacco use date assessed: 10/18/24 Dental Screening Dental Screen Date: 10/18/24 Did you have a dental visit in the last 12 months?: No Did you have a dental problem in the last 6 months where you did not have access to dental care?: No Was dental information given to patient?: No HPI f/u ADHD HPI Details Patient is a 34-year-old male here today for a follow up visit. Patient has a past medical history significant for ADHD, HTN and obesity. . Concern--> reports having some lower back pain as a chronic issue though recently fell off a ladder at work and injured his coccyx region. He has been having some back spasms. ADHD:? Has been doing well on current dose of Adderall.? Able to stay focused and on task while at work. 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 .. Hypertension:? ? He continues on lisinopril 10 mg with good effect.? Blood pre ssure today slightly elevated. He reports having a cup of coffee before he comes into the office. He reports generally his blood pressures are well controlled at home Most recent labs noted have an elevated total bilirubin at 3.1. We have ordered a abdominal ultrasound evaluate his biliary tree. Otherwise he has no other symptoms of liver failure. Laboratory Tests 10/10/24 10/10/24 12:28 12:35 RBC 5.11 Total Bilirubin 3.1 H Urine Microalbumin 7.0 PFSH Medical History Right wrist tendinitis Elevated blood pressure reading Surgical History History of hand surgery History of wisdom tooth extraction History of removal of cyst History of foot surgery History of eye surgery Family History Father No problems noted. Mother No problems noted. 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 1. Little interest or pleasure in doing things: not at all 2. Feeling down, depressed, or hopeless: not at all 3. Trouble falling or staying asleep, or sleeping too much: not at all 4. Feeling tired or having little energy: not at all 5. Poor appetite or overeating: not at all 6. Feeling bad about yourself - or that you are a failure or have let yourself or your family down: not at all 7. Trouble concentrating on things, such as reading the newspaper or watching television: not at all 8. Moving or speaking so slowly that other people could have noticed. Or the opposite - being so fidgety or restless that you have been moving around a lot more than usual: not at all 9. Thoughts that you would be better off or of hurting yourself in some way: not at all Total score: 0 Depression Screening Interpretation: Negative Depression Screening Done: Yes 50783 - PHQ-9 Billing: Yes Source: Developed by Drs. Roc Garcia, Tracey Mcintosh, Arturo Reyes and colleagues, with an educational eros from [employer]. Thrive Questionnaire Date Thrive assessed: 10/18/24 I am a: Patient What is your living situation today?: I have a steady place to live Within the past 12 months, did the food you bought not last and you didn't have the money to get more?: Never true Within the past 12 months, did you worry whether your food would run out before you got money to buy more?: Never true Do you have trouble paying for medicines?: No Do you have trouble getting transportation to medical appointments?: No Do you have trouble paying your heating and electricity bill?: No Do you have trouble taking care of your child, family member or friend?: No Do you have trouble with day-to-day activities such as bathing, preparing meals, shopping, managing finances, etc.?: No Are you currently unemployed and looking for a job?: No Are you interested in more education?: No Please select the resources that you would like help with: None Currently or been in a relationship where the following occur: No concerns reported THRIVE Score: 0 AUDIT C Alcohol Use Questionnaire (AUDIT-C) 1. How often do you have a drink containing alcohol?: Never Total Score: 0 APRYL-7 AMB Questionnaire APRYL-7 Date APRYL - 7 assessed: 10/18/24 Feeling nervous, anxious, or on edge: 0 = Not at all Not being able to stop or control worryin = Not at all Worrying too much about different things: 0 = Not at all Trouble relaxin = Not at all Being so restless that it is hard to sit still: 0 = Not at all Becoming easily annoyed or irritable: 0 = Not at all Feeling afraid as if something awful might happen: 0 = Not at all Total APRYL-7 score (0-4 normal; 5-9 mild; 10-14 moderate; 15-21 severe): 0 Source: Developed by Drs. Roc Garcia, Tracey Mcintosh, Arturo Reyes and colleagues, with an educational eros from [employer]. Review of Systems Const Denies headache(s) Eyes Denies loss of vision ENT Denies vertigo, Denies dizziness, Denies headache(s) and Denies sore throat Card Denies chest pain, Denies leg edema and Denies lightheadedness Resp Denies cough, Denies hemoptysis and Denies wheezing GI Denies abdominal pain, Denies melena, Denies constipation, Denies diarrhea and Denies vomiting Denies dysuria, Denies urinary frequency and Denies urinary urgency Musc Denies arthralgias, Denies joint swelling, Denies numbness and Denies tingling Neuro Denies Abnormal speech present, Denies behavioral changes, Denies vertigo, Denies dizziness, Denies headache(s), Denies loss of vision, Denies memory loss, Denies numbness and Denies tingling Psych Denies anxiety, Denies behavioral changes, Denies depression, Denies memory loss and Denies panic attacks Rafy/Lymph Denies easy bleeding and Denies easy bruising Aller/Immun Denies wheezing Physical exam (Primary Care) Vital Signs: Last Vital Signs Temp 97.1 F 10/18/24 08:55 Pulse 94 10/18/24 08:55 BP 130/70 10/18/24 08:55 Pulse Ox 99 10/18/24 08:55 Oxygen Delivery Method Room Air 10/18/24 08:55 BMI result Body Mass Index 30.1 Tobacco/Smoking Status: Tobacco use Status Tobacco use date assessed 10/18/24 10/18/24 08:59 Patient Tobacco Use Status Never used Tobacco 10/18/24 08:52 e-Cigarette/Vaping Use Never Used 10/18/24 08:52 PHQ-9: PHQ-9 Score PHQ-9: Total score 0 10/18/24 08:52 Depression Screening Interpretation: Negative Thrive Assessment: Date of Thrive Assessment Date Thrive assessed 10/18/24 10/18/24 08:52 Currently or been in a relationship where the following occur: No concerns reported Const General: healthy appearing, no acute distress, alert and awake Nutritional Appearance: well nourished Orientation/consciousness: oriented to person, oriented to place and oriented to time HENMT Ears: TM's normal bilaterally General nose exam: Normal nasal mucous membranes and turbinates present Eyes Conjunctivae: conjunctivae normal Sclerae: sclerae normal Pupils: Equal, round and reactive pupils present Neck Neck: Yes no lymphadenopathy and Yes no JVD Thyroid: Thyroid normal Carotids: no bruits Resp Effort & Inspection: normal respiratory effort and not tachypneic Auscultation: no crackles, no rales, no rhonchi and no wheezes Cardio Rate: regular rate Rhythm: regular rhythm Heart sounds: no murmurs and normal S1 and S2 GI Palpation (GI): Soft to palpation, nontender, no hepatomegaly and no splenomegaly Auscultation: normal bowel sounds Skin General skin exam: no rashes or lesions noted and dry skin Neuro General: oriented to person, oriented to place and oriented to time Cranial nerves: Yes Equal, round and reactive pupils present Speech: No Abnormal speech present Gait exam (Neuro): Normal gait present Motor exam (neuro): no tremor noted Extrem Right upper extremity: full ROM Left upper extremity: full ROM Right lower extremity: full ROM; no edema Left lower extremity: full ROM; no edema Psych Mental Status: mental status grossly normal Speech and movement: Normal speech and movement present Affect: normal affect Attitude: cooperative Thought process: Normal thought process present Coding Level of Care Code Est Pt Level 4 (15354) Diagnoses Primary hypertension I10 Hypertension type: primary hypertension Total bilirubin, elevated R17 Attention deficit hyperactivity disorder (ADHD), combined type F90.2 Attention deficit-hyperactivity disorder type: combined inattentive- hyperactive Back spasm M62.830 Lumbar spine pain M54.50 Additional Codes PHQ-9 - 60653 - PHQ-9 Billing: Yes ([id number]) Assessment & Plan Assessment & Plan (1) HTN (hypertension): Code(s): I10 - Essential (primary) hypertension Category: Medical Qualifiers: Hypertension type: primary hypertension Qualified Code(s): I10 - Essential (primary) hypertension Plan: Patient's blood pressure acceptable today in office. He has been working on dietary modifications in the lost weight since last office visit.. He does monitor his blood pressure from time to time reports normal readings 120s to 130 systolic. (2) Total bilirubin, elevated: Code(s): R17 - Unspecified jaundice Category: Medical Plan: Has been noted to elevated total bilirubin, no overt signs of liver failure. He will be sent for an ultrasound of his biliary region. And review of previous labs he has had total bilirubin elevation for quite some time even dating back to 2002. 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 (4) Back spasm: Code(s): M62.830 - Muscle spasm of back Category: Medical Plan: Reports recently falling off a ladder injuring his coccyx region. Has been having some back spasms. Will supply patient with muscle relaxer. He is considering seeing a chiropractor and/or physical therapy. Will send for x-rays of his lower lumbar spine as he has had lower lumbar spine issue for years that intermittently cause him pain. (5) Lumbar spine pain: Code(s): M54.50 - Low back pain, unspecified Category: Medical Plan: As above Orders: Orders XR lumbar spine 4V min Today M54.50 - Low back pain, unspecified Medications: New cyclobenzaprine 5 mg PO BEDTIME 14 days 14 tabs 0RF M62.830 - Muscle spasm of back Refilled dextroamphetamine-amphetamine 30 mg ER (Adderall XR) 30 mg PO DAILY 28 days 28 caps 0RF F90.2 - Attention-deficit hyperactivity disorder, combined type lisinopril 10 mg PO DAILY 90 tabs 3RF I10 - Essential (primary) hypertension
[2024-10-18 08:55] VITALS: BP 130/70; PULSE 94; TEMP 36.2; O2SAT 99; BMI 30.1
== END 2024-10-18 09:15 | disposition home or self-care (01) ==
PROVIDERS: PCP Physician Assistant; Visit Provider Physician Assistant
DX: I10 Essential (primary) hypertension (principal); R17 Unspecified jaundice; F90.2 Attention-deficit hyperactivity disorder, combined type; M62.830 Muscle spasm of back; M54.50 Low back pain, unspecified

== ENCOUNTER → 2024-10-18 08:44 | Outpatient (BNVA) | payer OTHER, SELFPAY | PROVIDERS: PCP Physician Assistant; Visit Provider Physician Assistant | DX: I10 Essential (primary) hypertension (principal); R17 Unspecified jaundice; F90.2 Attention-deficit hyperactivity disorder, combined type; M62.830 Muscle spasm of back; M54.50 Low back pain, unspecified; Z79.899 Other long term (current) drug therapy | CPT/HCPCS: 96127 ==

== ENCOUNTER 2024-10-24 09:48 | Outpatient (AMB) | payer OTHER, SELFPAY ==
--- NOTE | 2024-10-24 09:53 | A.OFFVIS_ITS ---
Intake Visit Reasons: 12w semen analysis Intake Note: Patient is present for 12W SEMEN ANALYSIS Urology Medication:NONE Antibiotic Allergy:NONE Blood Thinner:NONE Sprayer Insecticide Required: No Allergies No Known Allergies Allergy (Verified 10/24/24 09:53) HPI Comments Details: Malvin is a very pleasant 33-year-old male patient of Dr. Mc. He presents to the office today for - vasectomy evaluation High-powered field examination no sperm seen Minimal issues postprocedure Vasectomy evaluation The patient presents for vasectomy consultation.? He is currently He has fathered -?3 children, with 1 single partner The youngest child is - 4 years old? 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 Mother No problems noted. 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 Current occupational exposures/hazards: No Cognitive needs: No Hearing needs: No Vision needs: Yes (Glasses) Review of Systems Const Denies chills and Denies fever(s) Card Reports no additional complaints and Denies syncope Resp Denies cough GI Denies abdominal pain and Denies heartburn Reports as per HPI and Denies change in libido Neuro Denies syncope Psych Denies change in libido Endo Denies change in libido Physical Exam Const General: cooperative, healthy appearing, comfortable and no acute distress Orientation/consciousness: patient oriented x3 HEENT Face and sinus: Yes normal facial exam Mouth: moist mucous membranes Neck Neck: Yes normal visual inspection, Yes full ROM and Yes trachea midline Chest Chest palpation & inspection: normal inspection of the chest Resp Effort & Inspection: normal respiratory effort, able to speak in complete sentences and no respiratory distress GI Inspection: Yes normal to inspection Back/Spine/Pelvis Cervical Spine: normal cervical lordosis Thoracic/Lumbar Spine: thoracic and lumbar spine normal to inspection Skin General skin exam: no rashes or lesions noted Neuro General: patient oriented x3, gait normal, tone normal and moves all extremities Extrem General: Yes normal to inspection and Yes capillary refill normal Assessment & Plan Assessment & Plan (1) Anxiety about health: Code(s): R45.89 - Other symptoms and signs involving emotional state Category: Medical Plan P.r.n. follow-up Patient Instructions: Imaging studies, laboratory and physical exam results were discussed and reviewed in detail. No major barriers to patient understanding were identified. An opportunity to ask questions regarding the treatment plan was provided. All questions were answered. The patient expressed understanding and agreement with the above treatment plan. The patient is aware they should contact our office by phone for worsening of their current condition or the appearance of new urologic symptoms. Compliance is encouraged with any medications and followup testing that is ordered. It is a privilege to participate in the urologic care of your patient. If you have any questions or concerns regarding treatment for the above conditions, or other urologic issues, please do not hesitate to contact me. The office telephone contact is [phone]. This note is constructed using voice recognition software. While every effort has been made to ensure accuracy bilingual secretary errors may have been included. Yours sincerely, Dr James Alanis MD, [facility] - Urology Providers of Expert, Compassionate Care for the Genitourinary System Coding Level of Care Code Est Pt Level 3 (68722) Diagnoses Anxiety about health R45.89
--- OUTSIDE RECORDS SUMMARY | 2024-10-24 11:35 | XMS_ITS | Clinical Summary ---
Author Organization [facility] Address [address] [place] [address] Care Team Providers Care [place] [employer] Name Role Phone Pcp, No Primary Care Provider Unavailabl e Allergies No known active allergies Immunizations Name Administration Dates Next Due Influenza Inactivated/Split Preservative Free IM 09/07/2016 Social History Tobacco Use Types Packs/Day Years Used Date Smoking Tobacco: Never Assessed Sex and Gender Information Value Date Recorded Sex Assigned at Not on file Gender Identity Not on file Sexual Orientation Not on file Plan of Treatment Health Maintenance Due Date Last Done Comments Hepatitis C Virus Screening 1988 HIV Screening 2001 DTaP/Tdap/Td Vaccines (1 - Tdap) 2007 Hepatitis B Vaccines (1 of 3 - 19+ 3-dose series) 2007 Influenza Vaccine 04/26/2024 09/07/2016 COVID-19 Vaccine ( - 2023-2 5 season) 2024 HPV Vaccines Aged Out No longer eligi ble based on patient's age to complete this topic Pneumococcal Vaccine: Pediat maritza (0-5 Years) and At-Risk Patients (6 to 49 Years) Aged Out No longer eligible b ased on patient's age to complete this topic Care Teams [place] [employer] Relationship Specialty Start Date End Date Pcp, No PCP - General General Medicine 09/07/16
--- OUTSIDE RECORDS SUMMARY | 2024-10-24 11:35 | XMS_ITS | Clinical Summary ---
Author Organization Formerly [facility], [facility] Address [address] [place], [place] [id number] Care Team Providers Care Production Control Analyst Name Role Phone Juan Mc Primary Care Provider Edel Jorgensen Unavailable [phone] Allergies No known active allergies Medications ibuprofen (ADVIL) 200 mg tablet Take 200 mg by mouth every 6 (six) hours as needed for mild pain (1-3). Active amphetamine-dext roamphetamine XR (ADDERALL XR) 30 mg 24 hr capsule Take 30 mg by mouth daily. Active omeprazole (PriLOSEC) 20 mg capsule Take 20 mg by mouth daily. Active Encounters Date Type Department Care Team Description 09/07/2024 9:03 PM EST - 09/07/2024 11:15 PM EST Emergency Formerly [facility], [facility] Department of Emergency Services [address] [place] [address] Gerda Madison MD Testicular pain, left (Primary Dx) Discharge Disposition: Home or Self Care from Last 3 Months Social History Tobacco Use Types Packs/Day Years Used Date Smoking Tobacco: Never Smokeless Tobacco: Never Alcohol Use Standard Drinks/Week Comments Never 0 (1 standard drink = 0.6 oz pur e alcohol) Sex and Gender Information Value Date Recorded Sex Assigned at Not on file Legal Sex Male 2:41 PM EST Gender Identity Not on file Sexual Orientation Not on file Last Filed Vital Signs Vital Sign Reading Time Taken Comments Blood Pressure 125/85 09/07/2024 11:00 PM EST Pulse 70 09/07/2024 11:00 PM EST Temperature 36.6 ??C (97.9 ??F) 09/07/2024 11:[address] Respiratory Rate 18 09/07/2024 11:00 PM EST Oxygen Saturation 98% 09/07/2024 11:00 PM EST Inhaled Oxygen Concentration - - Weight 99.8 kg (220 lb) 09/11/2022 12:43 AM EST Height 175.3 cm (5' 9 ) 09/11/2022 12:43 AM EST Body Mass Index 32.49 09/11/2022 12:43 AM EST Plan of Treatment Health Maintenance Due Date Last Done Comments HIV Screening 1988 DTaP,Tdap,and Td Vaccines (1 - Tdap) 2006 Hepatitis C Screening 2006 Hepatitis B Vaccines (1 of 3 - 19+ 3-dose series) 2007 COVID-19 Vaccine ( - 2023-2 5 season) 2024 09/23/2021, 01/25/2021, 12/28/2020 Influenza Vaccine (#1) 2024 Zoster Vaccines (1 of 2) 2038 HPV Vaccines Aged Out No longer eligi ble based on patient's age to complete this topic Hepatitis A Vaccines Aged Out No long er eligible based on patient's age to complete this topic MMR Vaccines Aged Out No longer eligi ble based on patient's age to complete this topic Meningococcal Vaccine Aged Out No landne sadie eligible based on patient's age to complete this topic Pneumococcal Vaccine: Pediatrics (0 to 5 Years) and At-Risk Patients (6 to 64 Years) Aged Out No longer eligible b ased on patient's age to complete this topic Procedures Procedure Name Priority Date/Time Associated Diagnosis Comments US SCROTUM WITH DOPPLER STAT 09/07/2024 10:28 PM EST YELLOW NON-PRESERVATIVE HOLD TUBE, URINE STAT 09/07/2024 9:48 PM EST URINALYSIS, MACROSCOPIC REFLEX MICROSCOPIC AND CULTURE STAT 09/07/2024 9:48 PM EST URINALYSIS, MACROSCOPIC REFLEX MICROSCOPIC AND CULTURE (PANEL) STAT 09/07/2024 9:48 PM EST DEVLIN BORIC ACID TUBE, URINE STAT 09/07/2024 9:48 PM EST [facility] ED POCUS GENERIC PERFORMABLE STAT 09/07/2024 9:04 PM EST from Last 3 Months Results * US scrotum with doppler (09/07/2024 10:28 PM EST) Anatomical Region Laterality Modality Body Ultrasound 09/07/2024 10:4 6 PM EST Impressions 09/08/2024 10:57 AM EST No acute findings. This document has been electronically verified by Nory Mack MD on 09/07/2024 22:46:00 Electronic signature on this final report indicates that Pablo Baumann MD has personally reviewed this examination Reminder to Patients and Legally Authorized Representatives: Language in this report is designed for medical communication with other treating physicians and clinical practitioners. Please speak with your provider(s) about any questions or concerns related to the content of this report. AF^0 Narrative 09/08/2024 10:57 AM EST PROCEDURE INFORMATION: Exam: US Scrotum Exam date and time: 09/07/2024 9:58 PM Age: 33 years old Clinical indication: Scrotum pain; Prior surgery; Surgery date: 1-6 months; Surgery type: Vasectomy 1 month and half ago; Additional info: Scrotal pain, nontraumatic TECHNIQUE: Imaging protocol: Real-time ultrasound of the scrotum and contents with color Doppler and image documentation. COMPARISON: CT ABDOMEN PELVIS W IV CONTRAST 10/31/2020 6:48 PM FINDINGS: Right testicle: Normal. No mass. Normal color Doppler and arterial waveforms. No torsion. Left testicle: Normal. No mass. Normal color Doppler and arterial waveforms. No torsion. Epididymides: ??Small left epididymal cyst is noted. Scrotum/soft tissues: ??No significant hydrocele or varicocele. Procedure Note Pablo Baumann MD - 09/08/2024 PROCEDURE INFORMATION: Exam: US Scrotum Exam date and time: 09/07/2024 9:58 PM Age: 33 years old Clinical indication: Scrotum pain; Prior surgery; Surgery date: 1-6months; Surgery type: Vasectomy 1 month and half ago; Additional info: Scrotalpain, nontraumatic TECHNIQUE: Imaging protocol: Real-time ultrasound of the scrotum and contents withcolor Doppler and image documentation. COMPARISON: CT ABDOMEN PELVIS W IV CONTRAST 10/31/2020 6:48 PM FINDINGS: Right testicle: Normal. No mass. Normal color Doppler and arterialwaveforms. No torsion. Left testicle: Normal. No mass. Normal color Doppler and arterialwaveforms. No torsion. Epididymides: Small left epididymal cyst is noted. Scrotum/soft tissues: No significant hydrocele or varicocele. IMPRESSION: No acute findings. This document has been electronically verified by Nory Mack MD on09/07/2024 22:46:00 Electronic signature on this final report indicates that MD Rosenda has personally reviewed this examination Reminder to Patients and Legally Authorized Representatives: Language in this report is designed for medical communication with othertreating physicians and clinical practitioners. Please speak with your provider(s) about any questions or concernsrelated to the content of this report. AF^0 us Gerda Madison MD IMG US PROCEDURES Final Result * Urinalysis, macroscopic (09/07/2024 9:48 PM EST) Color Yellow Yellow, Straw, Dark yellow 09/07/2024 10:03 PM [facility] Clarity Clear Clear 09/07/2024 10:03 PM EST [facility] Specific [place] 1.025 >1.005 - <1.030 09/07/2024 10:03 PM [facility] pH 7.5 5.0 - 8.0 09/07/2024 10:03 PM [facility] Glucose Qual Negative Negative mg/dL 09/07/2024 10:03 PM [facility] Protein, Qual Trace Negative, Trace mg/dL 09/07/2024 10:03 PM [facility] Ketones, Urine Negative Negative mg/dL 09/07/2024 10:03 PM [facility] Bilirubin, Urine Negative Negative 09/07/20 10:03 PM EST [facility] Hemoglobin Negative Negative 09/07/2024 10:03 PM EST [facility] Nitrite Negative Negative 09/07/2024 10:03 PM EST [facility] Urobilinogen 1.0 0.2 - 1.0 EU/dL 09/07/2024 10:03 PM EST [facility] Leukocytes Negative Negative 09/07/2024 10:03 PM EST [facility] Urine Urine specimen obtained by clean catch procedure / Unknown Non-blood Collection / Unknown 09/07/2024 9:48 PM EST 09/07/2024 9:57 PM EST us Gerda Madison MD LAB URINE ORDERABLES Final Resul t Performing Organization Address City/[facility]/ZIP Co de Phone Number [facility] [address] [place] [address], * Yellow top, urine (09/07/2024 9:48 PM EST) Urine Urine specimen / Unknown Non-blood Collection / Unknown 09/07/2024 9:48 PM EST 09/07/2024 9:57 PM EST us Gerda Madison MD LAB URINE ORDERABLES Final Resul t Performing Organization Address City/[facility]/ZIP Co de Phone Number [facility] [address] [place] [address], * Devlin boric acid tube, urine (09/07/2024 9:48 PM EST) Urine Urine specimen obtained by clean catch procedure / Unknown Non-blood Collection / Unknown 09/07/2024 9:48 PM EST 09/07/2024 9:57 PM EST us Gerda Madison MD LAB MICROBIOLOGY - GENERAL ORDER MILKA Final Result Performing Organization Address City/[facility]/ZIP Co de Phone Number [facility] [address] [place] [address], [place] [phone] * [facility] ED POCUS GENERIC PERFORMABLE (09/07/2024 9:04 PM EST) Anatomical Region Laterality Modality Body Ultrasound Narrative 09/07/2024 10:43 PM EST Gerda Madison MD ? 09/07/2024 11:25 PM ED PoCUS Diagnostic Performed by: Aman Loja MD Authorized by: Gerda Madison MD ?? Diagnostic Procedure: Scrotal ?? Indication for Ultrasound: ??Testicle Pain Scrotal Ultrasound Identified structures: testicle and epididymis ?? Herniated bowel: absent ?? Left Hydrocele: absent ?? Left Hyperemia: N/A ?? Left Power doppler signal over testicle: present ?? Right Hydrocele: absent ?? Right Hyperemia: N/A ?? Right Power doppler signal over testicle: present ?? Educational Purpose for Scrotal This exam was not performed for educational purposes. Leisure Travel Agent for Scrotal After review of the scrotal xtpya-eb-ncyt ultrasound performed on this patient, I assess the overall image quality as adequate. The accuracy of interpretation of scrotal images as presented reflects true negative. This scrotal study does not meet minimum criteria for credentialing and billing. Scrotal Quality Verified by Ultrasound Credentialed Provider: Gerda Madison MD us Gerda Madison MD IMG ED US PROCEDURES Final Resul t from Last 3 Months Insurance Care Teams Production Control Analyst Relationship Specialty Start Date End Date Juan Mc PA [address] [place] [address] PCP - General Primary Care 09/11/22 Edel Jorgensen [address] [place] [address] [place] [id number] PCP - Insurance Payer PCP 09/07/24
--- OUTSIDE RECORDS SUMMARY | 2024-10-24 11:35 | XMS_ITS | Patient Health Record ---
Author Organization [facility] enter Address [address] [place] [address] Support Name Relationship Address Phone Malvin Ayers Guarantor Unknown [phone] Reason For Referral No Information Plan Of Treatment No Information Insurance Providers Payer Name Payer Address Payer Phone Subscriber Number Group Number Insured Name Patient Relationship to Insured Coverage Start Date Coverage End Date [facility] [address] [place] [address] Malvin Ayers Self - patient is the insured
--- OUTSIDE RECORDS SUMMARY | 2024-10-24 11:35 | XMS_ITS | Data Portability ---
Author Organization [place] - [facility] Address [address] [address] Care Team Providers Care Golf Sales Manager Name Role Phone SHAN YOSEPH Primary Care Provider Assessment Encounter Date Assessment Date Assessment LastModified by Organization Details LastModified Time 05/07/2024 05/07/2024 Audiometric testing obtained today and reviewed with the patient demonstrate stability of his asymmetric hearing loss. Reviewed with patient the differential diagnosis of asymmetric hearing loss and the rationale for and utility of MRI of the internal auditory canals. Will call him with the results. As hearing is stable, will drop to annual audiometric testing. Recommend continued routine use of hearing protection. Patient understands to call sooner than follow up with any change in hearing or development of new otologic symptoms. [email or web address] Not available 05/07/2024 11:45:38 Plan of Treatment Reminders Order Date Submit Date Provider Last Modified By Organization Details Last Modified Time Details Appointments None recorded. Lab None recorded. Referral None recorded. Procedures None recorded. Surgeries None recorded. Imaging MRI, brain + internal auditory canal, w/wo contrast - MRI, BRAIN + INTERNAL AUDITORY CANAL, W/WO CONTRAST 2023 08 024 [facility] ([facility] [address] [facility], [place], [address], 10:45:14 Medication Orders None recorded. Patient TargetsNo targets recorded. Patient InstructionsNo instructions recorded. Reason for Referral None Reported. Results Created Date Observation Date Name Description Value Unit Range Abnormal Flag Note LastModifiedBy Organization Detail LastModifiedTime 05/07/20 24 audio gram No observ ation record ed. [email or web address] Not Available 2023 14:19:56 05/08/20 audio gram No observ ation record ed. [email or web address] Not Available 2023 11:22:00 05/11/20 24 05/10/2024 MRI, brain + inter nal audit ory canal , w/wo contr ast No observ ation record ed. [email or web address] [address] [facility], [place], [address], 05/18/2024 11:05:25 05/16/20 24 11/04/2023 imagi ng/di agnos tic resul t No observ ation record ed. [email or web address] Not Available 09:04:36 Result Notes None recorded. Problems Name Problem SNOMED Code Status Onset Date Resolution Date Notes Provider Name and Address Organization Details Recorded Time Sensorine ural hearing loss of bilateral ears 580181095 Active 2023 Sensorine ural hearing loss, bilateral ; Note: Date Diagnosed : 11/04/2023 4:31 PM (H90.3) Not Available [facility] 4 03:05:28 Bilateral tinnitus 97759293671 02 Active 2023 Tinnitus, bilateral ; Note: Date Diagnosed : 11/04/2023 4:31 PM (H93.13) Not Available [facility] 4 03:05:28 Disorder of right Eustachia n tube 38666571300 02742 Active 2023 Other specified disorders of Eustachia n tube, right ear; Note: Date Diagnosed : 11/04/2023 4:31 PM (H69.81) Not Available [facility] 4 03:05:29 Problem Notes None recorded. Procedures Surgical History Date Name Laterality Status Provider Name and Address Organization Details Recorded Time 05/07/2024 Air & Speech Audio with Tymps (42804, 11993 & 32254) completed Courtney Tovar [place] - [facility] 05/07/2024 10:13:53 Imaging Results Imaging Date Name Status LastModified by Organiz ation Details LastModified Time 05/07/2024 audiogram completed Information no t available 05/07/2024 14:19:56 05/08/2024 audiogram completed Information no t available 05/08/2024 11:22:00 05/10/2024 MRI, brain + internal auditory canal, w/wo contrast completed [email or web address] [place] [address] [facility], [place], [address], 05/18/2024 11:05:25 11/04/2023 imaging/diagno stic result completed [email or web address] Information not available 05/16/2024 09:04:36 Procedure Notes None recorded. Medical Equipment None Reported. Medications Name Sig Start Date Stop Date Status Note LastModified by Organization Details LastModified Time omeprazole 40 mg capsule,delay ed release TAKE 1 CAPSULE BY MOUTH EVERY DAY IN THE MORNING active Not Available Not Available No t Available lisinopril 10 mg tablet TAKE 1 TABLET BY MOUTH DAILY active Not Available Not Available No t Available dextroampheta mine-amphetam ine ER 30 mg 24hr capsule,exten d release TAKE 1 CAPSULE BY MOUTH EVERY DAY active Not Available Not Available No t Available fluticasone propionate 50 mcg/actuation nasal spray,suspens ion SPRAY 2 SPRAYS IN BOTH NOSTRILOS ONCE A DAY 2023 active Not Available Not Available Not Avai lable Vitals None Recorded Social History None recorded. Functional Status None recorded. Mental Status None recorded. Family History Nothing Reported. Medical History No medical history recorded. Past Encounters Encounter ID Performer Location Encounter Start Date Encounter Closed Date Diagnosis/Indication Diagnosis SNOMED-CT Code Diagnosis ICD10 Code Diagnosis Note [id number] MARVIN PRECIADO PA-C [facility] [address] [address] 05/07/2024 09:31:26 05/07/2024 10:36:05 Sensorineural hearing loss of bilateral ears [id number] H90.3 Audiologic al evaluation results: Right ear: {{Normal N ormal through 2 kHz Mild M oderate Mo derately-s evere Louise re Profoun d Mild sloping to moderate at 500Hz SNHL#}} {{hearing sloping to a mild slopi ng to a moderate s loping to moderately severe slo ping to severe slo ping to profound f lat high frequency low frequency mid frequency cookie bite huang curve rais ing to WNL#}} {{with* se nsorineura l hearing loss with condu ctive hearing loss with mixed hearing loss with}} {{excellen t* good fa ir poor no measurable }} word recognitio n. Left ear: {{Normal N ormal through 2 kHz Mild M oderate Mo derately-s evere Louise re Profoun d Essentia lly normal#}} {{hearing* sloping to a mild slopi ng to a moderate s loping to moderately severe slo ping to severe slo ping to profound f lat high frequency low frequency mid frequency cookie bite huang curve}} {{with* se nsorineura l hearing loss with condu ctive hearing loss with mixed hearing loss with}} {{excellen t* good fa ir poor no measurable }} word recognitio n. Tympanomet ry: Right Ear:{{Type A* Type As Type Ad Type C Type C, shallow & rounded Ty pe B Type B with large volume Cou ld not maintain a hermetic seal}} Left Ear:{{Type A* Type As Type Ad Type C Type C, shallow & rounded Ty pe B Type B with large volume Cou ld not maintain a hermetic seal}} Bilateral tinnitus 74234 93335 102 H93.13 Health Concerns Section Related Observation LastModified by Organization Detai ls LastModified Time None Recorded Concern Status LastModified by Organization Details LastModified Time None Recorded Advance Directives Directive None Recorded Payers Encounter Date Sequence Insurance Name Policy Number Policy Degroot Covered Member ID Degroot Member ID Guarantor Name 05/07/[address] [place] [id number] Malvin Ayers [id number] Malvin Ayers Notes Date Note Type Note Provider Name and Address Organization Details Recorded Time 05/07/2024 text/html 33-year-old male presents for follow-up on bilateral tinnitus and asymmetric low frequency hearing loss. He does not feel that the hearing nor the tinnitus has changed. For the crackling in the ears, he has been using flonase. He feels that the symptoms mildly improved but then plateaued and he has had no further improvement. He denies otalgia and otorrhea. He reports that he never heard from scheduling regarding the MRI. MARVIN PRECIADO PA-C [address] [place] [address] [place], [address], [facility] - [facility] 05/07/2024 11:46:50
== END 2024-10-24 10:28 | disposition home or self-care (01) ==
PROVIDERS: PCP Physician Assistant; Visit Provider Urology
DX: R45.89 Other symptoms and signs involving emotional state (principal)
CPT/HCPCS: 99024

== ENCOUNTER → 2024-10-24 09:48 | Outpatient (BNVA) | payer OTHER, SELFPAY | PROVIDERS: PCP Physician Assistant; Visit Provider Urology ==

== ENCOUNTER 2024-11-07 10:09 | Outpatient (REF) | payer OTHER, SELFPAY ==
--- NOTE | ~2024-11-07 | US_ITS ---
CLINICAL HISTORY: ELEVATED BILIRUBIN US ABDOMEN COMPLETE Comparison: None Findings: The pancreas is obscured by bowel gas. The aorta and inferior vena cava are normal caliber. The liver is normal in size and echotexture. The right hepatic lobe measures 16 cm. There is no intrahepatic bile duct dilatation. The common bile duct measures 3 mm. The gallbladder is normal. There is no sonographic Cornelius sign. The main portal vein is antegrade. The right kidney is 10.6 cm in length. The left kidney is 11.4 cm in length. No hydronephrosis. The spleen is normal. No ascites. IMPRESSION: 1. No cholelithiasis, gallbladder sludge or acute cholecystitis. 2. No biliary ductal dilatation. This document has been electronically signed by: Sara Florian DO on 11/07/2024 16:54:03
--- OUTSIDE RECORDS SUMMARY | 2024-11-07 12:02 | XMS_ITS | Patient Health Record ---
Author Organization [facility] enter Address [address] [place] [id number] Support Name Relationship Address Phone Malvin Ayers Guarantor Unknown [phone] Reason For Referral No Information Plan Of Treatment No Information Insurance Providers Payer Name Payer Address Payer Phone Subscriber Number Group Number Insured Name Patient Relationship to Insured Coverage Start Date Coverage End Date [facility] [address] [place] [address] [phone] Malvin Ayers Self - patient is the insured
--- OUTSIDE RECORDS SUMMARY | 2024-11-07 12:02 | XMS_ITS | Clinical Summary ---
Author Organization [facility] Address [address] [place] [address] Care Team Providers Care Daycare Worker Name Role Phone Pcp, No Primary Care [...] age to complete this topic Care Teams Daycare Worker Relationship Specialty Start Date End Date Pcp, No PCP - General General Medicine 09/07/16
--- OUTSIDE RECORDS SUMMARY | 2024-11-07 12:02 | XMS_ITS | Clinical Summary ---
Author Organization [facility] Address [address] [id number] Care Team Providers Care Porter [employer] Car [employer] Name Role Phone Juan Mc Primary Care Provider Edel Jorgensen Unavailable [phone] Allergies No known active allergies Medications [...] EST - 09/07/2024 11:15 PM EST Emergency [facility] Department of Emergency Services [address] [place] [address] Gerda Madison MD Testicular pain, left (Primary [...] this topic Meningococcal Vaccine Aged Out No landen sadie eligible based on patient's age to [...] TUBE, URINE STAT 09/07/2024 9:48 PM EST [facility] ED POCUS GENERIC PERFORMABLE STAT 09/07/2024 9:04 [...] Yellow, Straw, Dark yellow 09/07/2024 10:03 PM [facility] Clarity Clear Clear 09/07/2024 10:03 PM EST [facility] Specific [place] 1.025 >1.005 - <1.030 09/07/2024 10:03 PM [facility] pH 7.5 5.0 - 8.0 09/07/2024 10:03 PM [facility] Glucose Qual Negative Negative mg/dL 09/07/2024 10:03 PM [facility] Protein, Qual Trace Negative, Trace mg/dL 09/07/2024 10:03 PM [facility] Ketones, Urine Negative Negative mg/dL 09/07/2024 10:03 PM [facility] Bilirubin, Urine Negative Negative 09/07/20 10:03 PM EST [facility] Hemoglobin Negative Negative 09/07/2024 10:03 PM EST [facility] Nitrite Negative Negative 09/07/2024 10:03 PM EST [facility] Urobilinogen 1.0 0.2 - 1.0 EU/dL 09/07/2024 10:03 PM EST [facility] Leukocytes Negative Negative 09/07/2024 10:03 PM EST [facility] Urine Urine specimen obtained by clean catch procedure / Unknown Non-blood Collection / Unknown 09/07/2024 9:48 PM EST 09/07/2024 9:57 PM EST us Gerda Madison MD LAB URINE ORDERABLES Final Resul t Performing Organization Address City/[facility]/ZIP Co de Phone Number [facility] [address] [place] [address], * Yellow top, urine (09/07/2024 9:48 PM EST) Urine Urine specimen / Unknown Non-blood Collection / Unknown 09/07/2024 9:48 PM EST 09/07/2024 9:57 PM EST us Gerda Madison MD LAB URINE ORDERABLES Final Resul t Performing Organization Address City/[facility]/ZIP Co de Phone Number [facility] [address] [place] [address], * Devlin boric acid tube, urine (09/07/2024 9:48 PM EST) Urine Urine specimen obtained by clean catch procedure / Unknown Non-blood Collection / Unknown 09/07/2024 9:48 PM EST 09/07/2024 9:57 PM EST us Gerda Madison MD LAB MICROBIOLOGY - GENERAL ORDER MILKA Final Result Performing Organization Address City/[facility]/ZIP Co de Phone Number [facility] [address] [place] [address], [place] [phone] * [facility] ED POCUS GENERIC PERFORMABLE (09/07/2024 9:04 PM [...] exam was not performed for educational purposes. Banquet Attendant for Scrotal After review of the scrotal vfiyc-hl-durg ultrasound performed on this patient, I assess the overall image quality as adequate. The accuracy of interpretation of scrotal images as presented reflects true negative. This scrotal study does not meet minimum criteria for credentialing and billing. Scrotal Quality Verified by Ultrasound Credentialed Provider: Gerda Madisno MD us Gerda Madison MD IMG ED US PROCEDURES Final Resul t from Last 3 Months Insurance Care Teams [employer] Relationship Specialty Start Date End Date Juan Mc PA [address] [place] [address] PCP - General Primary Care 09/11/22 Edel Jorgensen [address] [place] [address] [place] [id number] PCP - Insurance Payer PCP 09/07/24
--- OUTSIDE RECORDS SUMMARY | 2024-11-07 12:02 | XMS_ITS | Data Portability ---
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 Patient TargetsNo [...] observ ation record ed. [email or web address] Shel [address] [facility], [place], [address], 05/18/2024 11:05:25 05/16/20 24 11/04/2023 imagi ng/di agnos tic resul t No observ ation record ed. [email or web address] Not Available 09:04:36 Result Notes None recorded. Problems Name Problem SNOMED Code Status Onset Date Resolution Date Notes Provider Name and Address Organization Details Recorded Time Sensorine ural hearing loss of bilateral ears 861579132 Active 2023 Sensorine ural hearing loss, bilateral ; Note: Date Diagnosed : 11/04/2023 4:31 PM (H90.3) Not Available [facility] 4 03:05:28 Bilateral tinnitus 51330524915 02 Active 2023 Tinnitus, bilateral ; Note: Date Diagnosed : 11/04/2023 4:31 PM (H93.13) Not Available [facility] 4 03:05:28 Disorder of right Eustachia n tube [id number] 23095 Active 2023 Other specified disorders of Eustachia n tube, right ear; Note: Date Diagnosed : 11/04/2023 4:31 PM (H69.81) Not Available [facility] 4 03:05:29 Problem Notes None recorded. Procedures Surgical History Date Name Laterality Status Provider Name and Address Organization Details Recorded Time 05/07/2024 Air & Speech Audio with Tymps (64969, 11860 & 70879) completed Courtney Tovar [place] - [facility] 05/07/2024 10:13:53 Imaging Results Imaging Date Name Status LastModified by Organiz ation Details LastModified Time 05/07/2024 audiogram completed Information no t available 05/07/2024 14:19:56 05/08/2024 audiogram completed Information no t available 05/08/2024 11:22:00 05/10/2024 MRI, brain + internal auditory canal, w/wo contrast completed [email or web address] [place] [address] [facility], [place], [address], 05/18/2024 11:05:25 11/04/2023 imaging/diagno stic result completed [...] SNOMED-CT Code Diagnosis ICD10 Code Diagnosis Note [id number] MARVIN PRECIADO PA-C [facility] [address] [address] 05/07/2024 09:31:26 05/07/2024 10:36:05 Sensorineural hearing loss of bilateral ears [id number] H90.3 Audiologic al evaluation results: Right ear: [...] not maintain a hermetic seal}} Bilateral tinnitus 46304 25800 102 H93.13 Health Concerns Section Related Observation LastModified by Organization Detai ls LastModified Time None Recorded Concern Status LastModified by Organization Details LastModified Time None Recorded Advance Directives Directive None Recorded Payers Encounter Date Sequence Insurance Name Policy Number Policy Degroot Covered Member ID Degroot Member ID Guarantor Name 05/07/[address] [place] [address] [id number] Malvin Ayers [id number] Malvin Ayers Notes Date Note Type Note [...] scheduling regarding the MRI. MARVIN PRECIADO PA-C [address] [place] [address] [place], [address], [facility] - [facility] 05/07/2024 11:46:50
== END 2024-11-07 10:10 | disposition home or self-care (01) ==
LOC: HO.US 10:09
PROVIDERS: PCP Physician Assistant; Visit Provider Physician Assistant
DX: R17 Unspecified jaundice (principal)
CPT/HCPCS: 76700

== ENCOUNTER → 2024-11-07 10:11 | Outpatient (BNV) | payer OTHER, SELFPAY | PROVIDERS: PCP Physician Assistant; Visit Provider Radiology Diagnostic Radiology | DX: R17 Unspecified jaundice (principal) | CPT/HCPCS: 76700 ==

== ENCOUNTER 2025-04-17 13:20 | Outpatient (AMB) | payer OTHER, SELFPAY ==
--- NOTE | 2025-04-17 13:26 | MHC.PC.OV ---
Vital Signs 04/17/25 13:27 Height 5 ft 6 in Weight 192 lb BMI 31.0 BP 120/80 Blood Pressure Location Lt brachial Position Sitting Pulse 81 Pulse Source Pulse Oximeter Temp 97.3 F Temp Source Temporal Artery Scan Pulse Oximetry (%) 98 Oxygen Delivery Method Room Air Intake Visit Reasons: ANNUAL PE Intake Note: Patient is here today for a physical. Dispatcher Chief Oil Required: No Core Finisher: Not Required per policy Accompanied by: Self / Same As Patient Allergies No Known Allergies Allergy (Verified 04/17/25 13:53) Medication List - Last Reconciled 04/17/25 by Juan Mc PA-C blood pressure monitor (Blood Pressure Kit) As directed dextroamphetamine-amphetamine 30 mg ER (Adderall XR) 30 mg PO DAILY 28 days fluticasone propionate 50 mcg/actuation 2 sprays intranasal DAILY lisinopril 10 mg PO DAILY omeprazole 40 mg PO QAM Tobacco use date assessed: 04/17/25 Dental Screening Dental Screen Date: 10/18/24 HPI ANNUAL PE HPI Details Patient is a 34-year-old male here today for a annual physical Patient has a past medical history significant for ADHD, HTN and obesity. . 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 He has tried cyclobenzaprine without relief and is considering trying baclofen. ADHD:? Has been doing well on current dose of Adderall.? Able to stay focused and on task while at work. 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 .. Hypertension:? ? He continues on lisinopril 10 mg with good effect.? Blood pressure today slightly elevated. He reports having a cup of coffee before he comes into the office. He reports generally his blood pressures are well controlled at home [facility] Medical History (Updated 04/17/25 @ 15:14 by Juan Mc PA-C) Obese Chronic eustachian salpingitis, right ear Right wrist tendinitis Elevated blood pressure reading Surgical History History of vasectomy History of hand surgery History of wisdom tooth extraction History of removal of cyst History of foot surgery History of eye surgery Family History Father No problems noted. Mother No problems noted. 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 1. Little interest or pleasure in doing things: several days 2. Feeling down, depressed, or hopeless: several days 3. Trouble falling or staying asleep, or sleeping too much: several days 4. Feeling tired or having little energy: several days 5. Poor appetite or overeating: several days 6. Feeling bad about yourself - or that you are a failure or have let yourself or your family down: several days 7. Trouble concentrating on things, such as reading the newspaper or watching television: several days 8. Moving or speaking so slowly that other people could have noticed. Or the opposite - being so fidgety or restless that you have been moving around a lot more than usual: not at all 9. Thoughts that you would be better off or of hurting yourself in some way: not at all Total score: 7 Depression Screening Interpretation: Positive Depression Screening Done: Yes Source: Developed by Drs. Roc Garcia, Tracey Mcintosh, Arturo Reyes and colleagues, with an educational eros from [employer]. Thrive Questionnaire Date Thrive assessed: 04/17/25 I am a: Patient What is your living situation today?: I have a steady place to live Within the past 12 months, did the food you bought not last and you didn't have the money to get more?: Often true Within the past 12 months, did you worry whether your food would run out before you got money to buy more?: Often true Do you have trouble paying for medicines?: No Do you have trouble getting transportation to medical appointments?: No Do you have trouble paying your heating and electricity bill?: No Do you have trouble taking care of your child, family member or friend?: No Do you have trouble with day-to-day activities such as bathing, preparing meals, shopping, managing finances, etc.?: No Are you currently unemployed and looking for a job?: No Are you interested in more education?: No Please select the resources that you would like help with: None Currently or been in a relationship where the following occur: No concerns reported THRIVE Score: 2 AUDIT C Alcohol Use Questionnaire (AUDIT-C) 1. How often do you have a drink containing alcohol?: Never Total Score: 0 APRYL-7 AMB Questionnaire APRYL-7 Date APRYL - 7 assessed: 04/17/25 Feeling nervous, anxious, or on edge: 2 = More than half the days Not being able to stop or control worryin = More than half the days Worrying too much about different things: 2 = More than half the days Trouble relaxin = More than half the days Being so restless that it is hard to sit still: 2 = More than half the days Becoming easily annoyed or irritable: 2 = More than half the days Feeling afraid as if something awful might happen: 0 = Not at all Total APRYL-7 score (0-4 normal; 5-9 mild; 10-14 moderate; 15-21 severe): 12 Source: Developed by Drs. Roc Garcia, Tracey Mcintosh, Arturo Reyes and colleagues, with an educational eros from [employer]. Review of Systems Const Denies body aches, Denies chills, Denies excessive sweating, Denies fatigue, Denies fever(s) and Denies headache(s) Eyes Denies blurry vision ENT Denies dysphagia, Denies vertigo, Denies dizziness, Denies headache(s), Denies hearing loss and Denies tinnitus Card Denies chest pain, Denies chest pain with activity, Denies syncope, Denies irregular heart rhythm and Denies dyspnea Resp Denies chest congestion, Denies cough, Denies hemoptysis, Denies dyspnea and Denies wheezing GI Denies abdominal pain, Denies melena, Denies hematochezia, Denies coffee ground emesis, Denies dysphagia, Denies diarrhea, Denies nausea and Denies vomiting Denies difficulty urinating, Denies dysuria, Denies urinary frequency, Denies urinary hesitancy and Denies urinary urgency Musc Denies arthralgias, Denies limited range of motion, Denies muscle cramps and Denies muscle weakness Skin/Breast Denies rash and Denies skin ulcer Neuro Denies Abnormal speech present, Denies confusion, Denies vertigo, Denies dizziness, Denies syncope, Denies headache(s), Denies memory loss and Denies seizure-like activity Psych Denies anxiety, Denies confusion, Denies depression, Denies memory loss, Denies panic attacks and Denies paranoia Endo Denies excessive sweating, Denies fatigue, Denies flushing, Denies polydipsia and Denies polyuria Aller/Immun Denies wheezing Physical exam (Primary Care) Vital Signs: Last Vital Signs Temp 97.3 F 04/17/25 13:27 Pulse 81 04/17/25 13:27 BP 120/80 04/17/25 13:27 Pulse Ox 98 04/17/25 13:27 Oxygen Delivery Method Room Air 04/17/25 13:27 BMI result Body Mass Index 31.0 Tobacco/Smoking Status: Tobacco use Status Tobacco use date assessed 04/17/25 04/17/25 13:34 Patient Tobacco Use Status Never used Tobacco 04/17/25 13:34 e-Cigarette/Vaping Use Never Used 04/17/25 13:34 PHQ-9: PHQ-9 Score PHQ-9: Total score 7 04/17/25 13:57 Depression Screening Interpretation: Positive Thrive Assessment: Date of Thrive Assessment Date Thrive assessed 04/17/25 04/17/25 13:34 Currently or been in a relationship where the following occur: No concerns reported Const General: cooperative, comfortable, no acute distress, alert and awake; No confusion Orientation/consciousness: oriented to person, oriented to place, patient oriented x3 and No confusion HENMT Head: Yes normocephalic Ears: external ears normal and TM's normal bilaterally Face and sinus: No sinus tenderness Mouth: Normal oral and palatal mucosa present and tongue normal Teeth and gingiva: dentition normal and gingiva normal Throat: Yes posterior oropharynx normal, Yes tonsils normal and Yes uvula midline Eyes Conjunctivae: conjunctivae normal Sclerae: sclerae normal Pupils: Equal, round and reactive pupils present EOM: EOMs intact bilaterally Direct Ophthalmoscopy: No no photophobia Neck Neck: Yes no lymphadenopathy, No tender and Yes no JVD Thyroid: Thyroid normal Carotids: no bruits Chest Chest palpation & inspection: no tenderness Resp Effort & Inspection: normal respiratory effort, no audible wheezes, not labored and no stridor Auscultation: no crackles, no rales, no rhonchi and no wheezes Cardio Jugular venous distension: no JVD Rate: regular rate, not bradycardic and not tachycardic Rhythm: regular rhythm Bruits: no carotid bruits Peripheral pulses: Peripheral pulses 2+ throughout GI Inspection: Yes normal to inspection, No abdominal wall ecchymosis and No visible herniation Palpation (GI): Soft to palpation, nontender, no guarding, not rigid and No hepatosplenomegaly present Auscultation: normoactive bowel sounds General: Yes no CVA tenderness Back/Spine/Pelvis Back: no CVA tenderness and No back tenderness Cervical Spine: cervical ROM normal Thoracic/Lumbar Spine: thoracic and lumbar spine normal to inspection, straight leg raise negative bilaterally, No thoraco-lumbar ROM limited and No lumbar spinal tenderness Skin Lesions: no lesions Rashes: no rashes Wounds: no wounds Neuro General: oriented to person, oriented to place, patient oriented x3, CN's II-XI intact bilaterally and No confusion Cranial nerves: Yes Equal, round and reactive pupils present and Yes Normal accommodation reflex present Cognition (Neuro): normal cognition Speech: No Abnormal speech present Gait exam (Neuro): Normal gait present Motor exam (neuro): 5/5 motor strength present throughout Extrem Right upper extremity: full ROM; no cyanosis Left upper extremity: full ROM; no cyanosis Right lower extremity: no edema Left lower extremity: no edema Psych Appearance: grossly normal Mental Status: mental status grossly normal Affect: normal affect Attitude: cooperative Thought process: Normal thought process present Coding Level of Care Code Est Pt Prev Care 18-39y([id number]) Diagnoses Physical exam Z00.00 Back spasm M62.830 Primary hypertension I10 Hypertension type: primary hypertension Total bilirubin, elevated R17 Attention deficit hyperactivity disorder (ADHD), combined type F90.2 Attention deficit-hyperactivity disorder type: combined inattentive-hyperactive Class 1 obesity E66.811 Assessment & Plan Assessment & Plan (1) Physical exam: Comment: UTD eye exam Due for dental Due for labs ordered by previous PCP Code(s): Z00.00 - Encounter for general adult medical examination without abnormal findings Category: Medical Plan: As per HPI (2) Back spasm: Code(s): M62.830 - Muscle spasm of back Category: Medical Plan: The patient will try baclofen as an alternative muscle relaxant due to inadequate response to cyclobenzaprine. (3) HTN (hypertension): Code(s): I10 - Essential (primary) hypertension Category: Medical Qualifiers: Hypertension type: primary hypertension Qualified Code(s): I10 - Essential (primary) hypertension Plan: Patient's blood pressure acceptable today in office. He has been working on dietary modifications in the lost weight since last office visit.. He does monitor his blood pressure from time to time reports normal readings 120s to 130 systolic. (4) Total bilirubin, elevated: Code(s): R17 - Unspecified jaundice Category: Medical Plan: Has been noted to elevated total bilirubin, no overt signs of liver failure. He will be sent for an ultrasound of his biliary region. And review of previous labs he has had total bilirubin elevation for quite some time even dating back to 2002. 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 (6) Class 1 obesity: Code(s): E66.811 - Obesity, class 1 Category: Medical Plan: Patient does understand his BMI is over 30 will work on being more physically active and adapting to better eating habits to reduce his weight Medications: New baclofen 10 mg PO DAILY 14 tabs 0RF 14 days M62.830 - Muscle spasm of back Changed From fluticasone propionate 50 mcg/actuation 2 sprays intranasal DAILY J30.9 - Allergic rhinitis, unspecified To fluticasone propionate 50 mcg/actuation 2 sprays intranasal DAILY 16 grams 1RF 30 days J30.9 - Allergic rhinitis, unspecified Refilled lisinopril 10 mg PO DAILY 90 tabs 3RF I10 - Essential (primary) hypertension Patient Instructions: Goal: Blood pressure to remain below 140/90 Barriers: Adherence to physical activity and healthy eating habits
[2025-04-17 13:27] VITALS: BP 120/80; PULSE 81; TEMP 36.3; O2SAT 98; BMI 31.0
--- OUTSIDE RECORDS SUMMARY | 2025-04-17 13:51 | XMS_ITS ---
Author Name [facility] Organization Unknown Results Test Name/Text Value Interpretation Date Range Source BILIRUBIN, URINE Negative Normal 09/08/2024 - [facility] LEUKOCYTE ESTERASE Negative Normal 09/08/2024 - [facility] GLUCOSE QUAL Negative Normal 09/08/2024 - [facility] COLOR OF URINE Yellow Normal 09/08/2024 - [facility] PROTEIN QUAL Trace Normal 09/08/2024 - [facility] CLARITY OF URINE Clear Normal 09/08/2024 - [facility] NITRITE Negative Normal 09/08/2024 - [facility] KETONES URINE Negative Normal 09/08/2024 - [facility] UROBILINOGEN, URINE 1.0 EU/dL Normal 09/08/2024 0.2 - 1 [facility] PH OF URINE 7.5 Normal 09/08/2024 5 - 8 [facility] SPECIFIC GRAVITY 1.025 Normal 09/08/2024 - [facility] HEMOGLOBIN, URINE Negative Normal 09/08/2024 - [facility] Encounters Encounter Type Encounter Reason Primary Diagnosis Location Date Emergency Left testicular pain Left testicular pain [facility] 09/07/2024 Emergency Unspecified spra in of left wrist, initial encounter [facility] 09/10/2022 Care Team Organization Name Specialty Phone Email Start Date End Da te [facility] YOSEPH TORREZ Primary Care 2023 [facility] PCP,No Primary Care 09/11/2022 [facility] NO PCP Primary Care 09/10/2022 [facility] NO PCP Primary Care
--- OUTSIDE RECORDS SUMMARY | 2025-04-17 13:51 | XMS_ITS | Clinical Summary ---
Author Organization [facility] Address [address] [place] [address] Care Team Providers Care Manager Consumer Insights Name Role Phone Pcp, No Primary Care Provider Unavailabl e Allergies No known active allergies Immunizations Immunization Administration Dates Next Due Influenza Inactivated/Split Preservative Free IM 09/07/2016 Social History Tobacco Use Types Packs/Day Years Used Date Smoking Tobacco: Never Assessed Sex and Gender Information Value Date Recorded Sex Assigned at Not on file Legal Sex Male 4:25 PM EST Gender Identity Not on file Sexual Orientation Not on file Plan of Treatment Health Maintenance Due Date Last Done Comments Hepatitis C Virus Screening 1988 HIV Screening 2001 DTaP/Tdap/Td Vaccines (1 - Tdap) 2007 Hepatitis B Vaccines (1 of 3 - 19+ 3-dose series) 2007 COVID-19 Vaccine (2023-2 5 season) 2024 Influenza Vaccine 04/26/2025 09/07/2016 HPV Vaccines Aged Out No longer eligi ble based on patient's age to complete this topic Pneumococcal Vaccine: Pediat maritza (0-5 Years) and At-Risk Patients (6 to 49 Years) Aged Out No longer eligible b ased on patient's age to complete this topic Insurance [place] Care Teams Manager Consumer Insights Relationship Specialty Start Date End Date Pcp, No PCP - General General Medicine 09/07/16
--- OUTSIDE RECORDS SUMMARY | 2025-04-17 13:51 | XMS_ITS | Patient Health Record ---
Author Organization [facility] enter Address [address] [place] [id number] Support Name Relationship Address Phone Malvin Ayers Guarantor Unknown [phone] Reason For Referral No Information Plan Of Treatment No Information Insurance Providers Payer Name Payer Address Payer Phone Subscriber Number Group Number Insured Name Patient Relationship to Insured Coverage Start Date Coverage End Date [facility] [address] [place] [address] Malvin Ayers Self - patient is the insured
--- OUTSIDE RECORDS SUMMARY | 2025-04-17 13:51 | XMS_ITS | Clinical Summary ---
Author Organization [facility] Address [address] [place] [address] Care Team Providers Care Cannon Pinion Adjuster Name Role Phone Juan Mc Primary Care Provider Edel Jorgensen Unavailable [phone] Allergies No known active allergies Medications ibuprofen (ADVIL) 200 mg tablet Take 200 mg by mouth every 6 (six) hours as needed for mild pain (1-3). Active amphetamine-dext roamphetamine XR (ADDERALL XR) 30 mg 24 hr capsule Take 30 mg by mouth daily. Active omeprazole (PriLOSEC) 20 mg capsule Take 20 mg by mouth daily. Active Social History Tobacco Use Types Packs/Day Years [...] 68 09/07/2024 11:00 PM EST Temperature 36.6 C (97.9 F) 09/07/2024 11:00 PM EST Respiratory Rate 18 09/07/2024 11:00 PM EST [...] - 19+ 3-dose series) 2007 COVID-19 Vaccine (4 - 2023-2 5 season) 2024 09/23/2021, 01/25/2021, 12/28/2020 Influenza Vaccine (#1) 2025 Zoster Vaccines (1 of 2) 2038 HPV [...] 5 Years) and At-Risk Patients (6 to 49 Years) Aged Out No longer eligible b ased on patient's age to complete this topic Insurance Care Teams Cannon Pinion Adjuster Relationship Specialty Start Date End Date Juan Mc PA [address] [place] [id number] PCP - General Primary Care 09/11/22 Edel Jorgensen [address] [facility] [address] [place] [address] PCP - Insurance Payer PCP 09/07/24
== END 2025-04-17 14:11 | disposition home or self-care (01) ==
LOC: HO.HMCH 13:21
PROVIDERS: PCP Physician Assistant; Visit Provider Physician Assistant
DX: Z00.00 Encounter for general adult medical examination without abnormal findings (principal); M62.830 Muscle spasm of back; E66.811 Obesity, class 1; Z68.31 Body mass index [BMI] 31.0-31.9, adult; I10 Essential (primary) hypertension; R17 Unspecified jaundice; F90.2 Attention-deficit hyperactivity disorder, combined type

== ENCOUNTER 2025-08-26 11:12 | Outpatient (AMB) | payer OTHER, SELFPAY ==
--- NOTE | 2025-08-26 11:24 | A.OFFPC_ITS ---
Vital Signs 08/26/25 11:25 Height 5 ft 6 in Weight 189 lb BMI 30.5 BP 128/70 Blood Pressure Location Lt brachial Position Sitting Pulse 87 Pulse Source Pulse Oximeter Temp 97.1 F Temp Source Temporal Artery Scan Pulse Oximetry (%) 99 Oxygen Delivery Method Room Air Intake Visit Reasons: f/u ADHD Intake Note: Patient is here to follow up on ADHD. 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 Environmental Remediation Engineer: Not Required per policy Accompanied by: Self / Same As Patient Allergies No Known Allergies Allergy (Verified 08/26/25 11:36) Medication List - Last Reconciled 08/26/25 by Juan Mc PA-C blood pressure monitor (Blood Pressure Kit) As directed dextroamphetamine-amphetamine 30 mg ER (Adderall XR) 30 mg PO DAILY 28 days fluticasone propionate 50 mcg/actuation 2 sprays intranasal DAILY 30 days lisinopril 10 mg PO DAILY omeprazole 40 mg PO QAM Tobacco use date assessed: 08/26/25 Dental Screening Dental Screen Date: 10/18/24 HPI f/u ADHD HPI Details Patient is a 34-year-old male here today for a follow-up visit Patient has a past medical history significant for ADHD, HTN and obesity. . Concern--> right ear issue--> The patient reports chronic symptoms of a slightly blocked and crackling ear, which have worsened since a recent episode of pneumonia. The patient describes the symptoms as annoying and constant. The patient previously saw an ear, nose, and throat specialist who did not provide a definitive diagnosis or effective treatment. The patient has tried a device called Eustacey, which provides pressure to the ear but only offers temporary relief, with the blockage returning shortly after. Past recommendations included Flonase and an oral allergy medication, which the patient used inconsistently. The patient also tried Eustachian tube massages based on YouTube videos without success. ADHD:? Has been doing well on current dose of Adderall.? Able to stay focused and on task while at work. 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 .. Hypertension:? ? He continues on lisinopril 10 mg with good effect.? Blood pressure today acceptable. He reports having a cup of coffee before he comes into the office. He reports generally his blood pressures are well controlled at home. [facility] Medical History Obese Chronic eustachian salpingitis, right ear Right wrist tendinitis Elevated blood pressure reading Surgical History History of vasectomy History of hand surgery History of wisdom tooth extraction History of removal of cyst History of foot surgery History of eye surgery Family History Father No problems noted. Mother No problems noted. 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 Current occupational exposures/hazards: No Cognitive needs: No Hearing needs: No Vision needs: Yes (Glasses) Questionnaire Thrive Questionnaire Date Thrive assessed: 04/17/25 I am a: Patient What is your living situation today?: I have a steady place to live Within the past 12 months, did the food you bought not last and you didn't have the money to get more?: Often true Within the past 12 months, did you worry whether your food would run out before you got money to buy more?: Often true Do you have trouble paying for medicines?: No Do you have trouble getting transportation to medical appointments?: No Do you have trouble paying your heating and electricity bill?: No Do you have trouble taking care of your child, family member or friend?: No Do you have trouble with day-to-day activities such as bathing, preparing meals, shopping, managing finances, etc.?: No Are you currently unemployed and looking for a job?: No Are you interested in more education?: No Please select the resources that you would like help with: None Currently or been in a relationship where the following occur: No concerns reported THRIVE Score: 2 APRYL-7 AMB Questionnaire APRYL-7 Date APRYL - 7 assessed: 04/17/25 Source: Developed by Drs. Roc Garcia, Tracey B.W. Arturo Mcintosh and colleagues, with an educational eros from [employer]. Review of Systems Const Denies headache(s) Eyes Denies loss of vision ENT Denies vertigo, Denies dizziness, Denies headache(s) and Denies sore throat Card Denies chest pain, Denies leg edema and Denies lightheadedness Resp Denies cough, Denies hemoptysis and Denies wheezing GI Denies abdominal pain, Denies melena, Denies constipation, Denies diarrhea and Denies vomiting Denies dysuria, Denies urinary frequency and Denies urinary urgency Musc Denies arthralgias, Denies joint swelling, Denies numbness and Denies tingling Neuro Denies Abnormal speech present, Denies behavioral changes, Denies vertigo, Denies dizziness, Denies headache(s), Denies loss of vision, Denies memory loss, Denies numbness and Denies tingling Psych Denies anxiety, Denies behavioral changes, Denies depression, Denies memory loss and Denies panic attacks Rafy/Lymph Denies easy bleeding and Denies easy bruising Aller/Immun Denies wheezing Physical exam (Primary Care) Vital Signs: Last Vital Signs Temp 97.1 F 08/26/25 11:25 Pulse 87 08/26/25 11:25 BP 128/70 08/26/25 11:25 Pulse Ox 99 08/26/25 11:25 Oxygen Delivery Method Room Air 08/26/25 11:25 BMI result Body Mass Index 30.5 Tobacco/Smoking Status: Tobacco use Status Tobacco use date assessed 08/26/25 08/26/25 11:29 Patient Tobacco Use Status Never used Tobacco 08/26/25 11:29 e-Cigarette/Vaping Use Never Used 08/26/25 11:29 Thrive Assessment: Date of Thrive Assessment Date Thrive assessed 04/17/25 08/26/25 11:29 Currently or been in a relationship where the following occur: No concerns reported Const General: healthy appearing, no acute distress, alert and awake Nutritional Appearance: well nourished Orientation/consciousness: oriented to person, oriented to place and oriented to time HENMT Ears: TM's normal bilaterally General nose exam: Normal nasal mucous membranes and turbinates present Eyes Conjunctivae: conjunctivae normal Sclerae: sclerae normal Pupils: Equal, round and reactive pupils present Neck Neck: Yes no lymphadenopathy and Yes no JVD Thyroid: Thyroid normal Carotids: no bruits Resp Effort & Inspection: normal respiratory effort and not tachypneic Auscultation: no crackles, no rales, no rhonchi and no wheezes Cardio Rate: regular rate Rhythm: regular rhythm Heart sounds: no murmurs and normal S1 and S2 GI Palpation (GI): Soft to palpation, nontender, no hepatomegaly and no splenomegaly Auscultation: normal bowel sounds Skin General skin exam: no rashes or lesions noted and dry skin Neuro General: oriented to person, oriented to place and oriented to time Cranial nerves: Yes Equal, round and reactive pupils present Speech: No Abnormal speech present Gait exam (Neuro): Normal gait present Motor exam (neuro): no tremor noted Extrem Right upper extremity: full ROM Left upper extremity: full ROM Right lower extremity: full ROM; no edema Left lower extremity: full ROM; no edema Psych Mental Status: mental status grossly normal Speech and movement: Normal speech and movement present Affect: normal affect Attitude: cooperative Thought process: Normal thought process present Coding Level of Care Code Est Pt Level 4 (94137) Diagnoses Attention deficit hyperactivity disorder (ADHD), combined type F90.2 Attention deficit-hyperactivity disorder type: combined inattentive-hyp eractive Primary hypertension I10 Hypertension type: primary hypertension Chronic dysfunction of right eustachian tube H69.91 Assessment & Plan Assessment & Plan (1) ADHD (attention deficit hyperactivity disorder): Code(s): F90.9 - Attention-deficit hyperactivity disorder, unspecified type Category: Medical Qualifiers: Attention deficit-hyperactivity disorder type: combined inattentive- hyperactive Qualified Code(s): F90.2 - Attention-deficit hyperactivity disorder, combined type Plan: As per HPI patient doing well on his current dose of stimulant ADHD medication. 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 (2) HTN (hypertension): Code(s): I10 - Essential (primary) hypertension Category: Medical Qualifiers: Hypertension type: primary hypertension Qualified Code(s): I10 - Essential (primary) hypertension Plan: Patient's blood pressure acceptable today in office. He has been working on dietary modifications in the lost weight since last office visit.. He does monitor his blood pressure from time to time reports normal readings 120s to 130 systolic. (3) Chronic dysfunction of right eustachian tube: Code(s): H69.91 - Unspecified Eustachian tube disorder, right ear Category: Medical Plan: For management of suspected Eustachian tube dysfunction, a 9-day prednisone taper will be prescribed to reduce inflammation. The dosing schedule is three tablets daily for three days, two tablets daily for three days, and one tablet daily for three days. The patient was advised to take prednisone in the morning due to its potential to increase energy levels. Potential side effects, such as feeling more jittery, were discussed. The patient was advised to take an [id number] allergy medication, such as Claritin or Zyrtec, daily to help dry out the Eustachian tube. It was recommended to take this medication at night due to the potential for drowsiness, even with non-drowsy formulations. The patient will continue using Flonase nasal spray, and it was advised to avoid decongestant nasal sprays due to the risk of increasing blood pressure. Orders: Orders Complete Blood Count no Diff Today I10 - Essential (primary) hypertension Microalbumin, Random (w Creat) Today I10 - Essential (primary) hypertension Comprehensive [place]. Panel Fast Today I10 - Essential (primary) hypertension Medications: New prednisone see taper instructions 10 mg PO DIRECTED 18 tabs 0RF 9 days H69.91 - Unspecified Eustachian tube disorder, right ear Refilled dextroamphetamine-amphetamine 30 mg ER (Adderall XR) Partial Fill upon patient request. 30 mg PO DAILY 28 caps 0RF 28 days F90.2 - Attention-deficit hyperactivity disorder, combined type
[2025-08-26 11:25] VITALS: BP 128/70; PULSE 87; TEMP 36.2; O2SAT 99; BMI 30.5
--- OUTSIDE RECORDS SUMMARY | 2025-08-26 14:41 | XMS_ITS | Clinical Summary ---
Author Organization [facility] Address [address] [place] [address] Care Team Providers Care Skimmer Name Role Phone Pcp, No Primary Care Provider Unavailabl e Allergies No known active allergies Medications amphetamine-dex troamphetamine (ADDERALL XR) 30 MG 24 hr capsule Take by mouth. Activ e lisinopril (PRINIVIL,ZeSTR IL) 10 MG tablet Take 10 mg by mouth. Active OMEprazole (PriLOSEC) 40 MG capsule Take 40 mg by mouth every morning. Active albuterol (PROVENTIL HFA; VENTOLIN HFA) 108 (90 Base) MCG/ACT inhalerIndicati ons:Acute viral bronchitis Inhale 2 puffs 4 times daily (every 6 hours) as needed for wheezing or shortness of breath. 1 each 5 Active benzonatate (TESSALON) 100 MG capsuleIndicati ons:Acute viral bronchitis Take 2 capsules (200 mg total) by mouth 3 (three) times a day as needed for cough. 20 capsule 5 Active Encounters Date Type Department Care Team Description 06/26/2025 7:10 PM EDT Office Visit [facility] [address] [place] [id number] [address] Cesar Pan MD Goad, Ashley, APRN Acute viral bronchitis (Primary Dx) from Last 3 Months Immunizations Immunization Administration Dates Next Due Influenza [...] Sign Reading Time Taken Comments Blood Pressure 135/94 06/26/2025 7:26 PM EDT Pulse 92 06/26/2025 7:26 PM EDT Temperature 36.9 C (98.5 F) 06/26/2025 7:26 PM EDT Respiratory Rate - - Oxygen Saturation 98% 06/26/2025 7:26 PM EDT Inhaled Oxygen Concentration - - Weight 89.8 kg (198 lb) 06/26/2025 7:26 PM EDT Height 167.6 cm (5' 6 ) 06/26/2025 7:26 PM EDT Body Mass Index 31.96 06/26/2025 7:26 PM EDT Plan of Treatment Health Maintenance Due Date Last Done Comments Hepatitis C Virus Screening 1988 HIV Screening 2001 DTaP/Tdap/Td Vaccines (1 - Tdap) 2007 Hepatitis B Vaccines (1 of 3 - 19+ 3-dose series) 2007 Influenza Vaccine 04/26/2025 09/07/2016, 09/10/2009 COVID-19 Vaccine ( - 2024-2 6 season) 2025 09/23/2021, 01/25/2021, 12/28/2020 HPV Vaccines (No Doses Required) Completed Pneumococcal Vaccine: Pediatric (0-5 Years) and At-Risk Patients (6 to 49 Years) Aged Out No longer eligible b ased on patient's age to complete this topic Insurance [facility] Care Teams Skimmer Relationship Specialty Start Date End Date Pcp, No PCP - General General Medicine 09/07/16
--- OUTSIDE RECORDS SUMMARY | 2025-08-26 14:41 | XMS_ITS | Clinical Summary ---
Author Organization [facility] Address [address] [place] [address] Care Team Providers Care Vp Home Health Name Role Phone Juan Mc Primary Care Provider [phone] Edel Jorgensen Unavailable [phone] Allergies No known active allergies Medications ibuprofen (ADVIL) 200 mg tablet Take 200 mg by mouth every 6 (six) hours as needed for mild pain (1-3). Active amphetamine-dex troamphetamine XR (ADDERALL XR) 30 mg 24 hr capsule Take 30 mg by mouth daily. Active omeprazole (PriLOSEC) 20 mg capsule Take 20 mg by mouth daily. Active azithromycin (ZITHROMAX) 250 mg tablet Take two tablets (500mg total) on day one then 250mg daily for 4 days 6 each 07/10/2025 Active Active Problems No known active problems Encounters Date Type Department Care Team Description 07/10/2025 12:02 AM EDT - 07/10/2025 3:31 AM EDT Emergency [facility] Department of Emergency Services [address] [place], [place] [id number] Chao Merino MD Community acquired pneumonia, unspecified laterality (Primary Dx) Discharge Disposition: Home or Self [...] Sign Reading Time Taken Comments Blood Pressure 136/92 07/10/2025 3:23 AM EDT Pulse 63 07/10/2025 3:23 AM EDT Temperature 36.1 C (97 F) 07/10/2025 3:23 AM EDT Respiratory Rate 21 07/10/2025 3:23 AM EDT Oxygen Saturation 98% 07/10/2025 3:23 AM EDT Inhaled Oxygen Concentration - - Weight 84.4 kg (186 lb) 07/09/2025 11:13 PM EDT Height 167.6 cm (5' 6 ) 07/09/2025 11:13 PM EDT Body Mass Index 30.02 07/09/2025 11:13 PM EDT Plan of Treatment Health Maintenance Due Date Last Done Comments HIV Screening 1988 DTaP,Tdap,and Td Vaccines (1 - Tdap) 2006 Hepatitis C Screening 2006 Hepatitis B Vaccines (1 of 3 - 19+ 3-dose series) 2007 HPV Vaccines (1 - 3-dose SCD M series) 2015 COVID-19 Vaccine (4 - 2024-2 6 season) 2025 09/23/2021, 01/25/2021, 12/28/2020 Influenza Vaccine (#1) 2025 Zoster Vaccines (1 of 2) 2038 Hepatitis A Vaccines Aged Out No long er eligible based on patient's age to complete this topic MMR Vaccines Aged Out No longer eligi ble based on patient's age to complete this topic Meningococcal Vaccine Aged Out No landen sadie eligible based on patient's age to complete this topic Pneumococcal Vaccine: At-Ris k and Pediatric Patients (0 to 49 Years) Aged Out No longer eligible b ased on patient's age to complete this topic Procedures Procedure Name Priority Date/Time Associated Diagnosis Comments SARS, INFLUENZA A, B, AND RSV PCR (CEPHEID) Routine 07/10/2025 1:13 AM EDT XR CHEST 2 VW STAT 07/10/2025 1:11 AM EDT from Last 3 Months Results * SARS, Influenza A,B, and RSV PCR (CEPHEID) (07/10/2025 1:13 AM EDT) SARS-COV-2 PCR (Cepheid) Negative Negative 07/10/2025 2:55 AM EDT [facility] Influenza A PCR (Cepheid) Not Detected Not Detected 07/10/2025 2:55 AM EDT [facility] Influenza B PCR (Cepheid) Not Detected Not Detected 07/10/2025 2:55 AM EDT [facility] RSV PCR (Cepheid) Not Detected Not Detected 07/10/2025 2:55 AM EDT [facility] Swab Nasopharyngeal structure / Unknown Non-blood Collection / Unknown 07/10/2025 1:13 AM EDT 07/10/2025 1:19 AM EDT Narrative [facility] - 07/10/2025 2:55 AM EDT The [employer] Flu A/B/RSV/SARS CoV-2 assay performed on the GeneXpert System is a multiplex real-time RT-PCR intended for the qualitative detection and differentiation of influenza A, influenza B, RSV, and SARS CoV-2 RNA in nasopharyngeal or anterior nasal swab specimens from patients exhibiting signs/symptoms of respiratory viral illness. The test is FDA-cleared, and its performance was verified by [facility]. A negative/not detected result does not exclude viral infection and should not be used as the sole basis for treatment or patient management decisions. Results must be considered in the context of clinical observations, patient history, and epidemiological information. us Silvano Brody Jr., PA-C LAB MICRO - GENERA L ORDERABLES NO STAT Final Result [facility] [address] [place] [address], [place] [phone] * XR chest 2 vw (07/10/2025 1:11 AM EDT) Anatomical Region Laterality Modality Chest Computed Radiogr aphy 07/10/2025 6:27 AM EDT Impressions 07/10/2025 6:30 AM EDT Right mid to upper lung zone opacities likely represent acute infectious process. Additional patchy opacities suspected in the left lower lung zone. Reminder to Patients and Legally Authorized Representatives: Language in this report is designed for medical communication with other treating physicians and clinical practitioners. Please speak with your provider(s) about any questions or concerns related to the content of this report. Kaila Shannon MD AF^1 Narrative 07/10/2025 6:30 AM EDT EXAMINATION: XR CHEST 2 VW 07/10/2025 12:59 AM INDICATION: Cough, persistent COMPARISON: None available. TECHNIQUE: 2 images. PA and lateral views of the chest. FINDINGS: There are opacities in the right mid to upper lung zone and possibly in the left lower lung zone. No pleural effusion or pneumothorax is demonstrated. The cardiomediastinal silhouette is within normal limits. No acute osseous abnormalities. Silvano Brody Jr., PA-C IMG XR PROCEDURES Edited Result - Final from Last 3 Months Insurance O NON PAR Care Teams Vp Home Health Relationship Specialty Start Date End Date Juan Mc PA [address] [place] [id number] PCP - General Primary Care 09/11/22 Edel Jorgensen [address] [place] [address] [place] [id number] PCP - Insurance Payer PCP 09/07/24
== END 2025-08-26 11:53 | disposition home or self-care (01) ==
LOC: HO.HMCH 11:13
PROVIDERS: PCP Physician Assistant; Visit Provider Physician Assistant
DX: F90.2 Attention-deficit hyperactivity disorder, combined type (principal); I10 Essential (primary) hypertension; H69.91 Unspecified Eustachian tube disorder, right ear